=== PATIENT | female | born 1990 | race Caucasian/White ===

== ENCOUNTER 2017-01-25 20:01 | Emergency (ER) | payer BC, OTHER ==
[~2017-01-25] VITALS: Ht 165.1 cm; Wt 72.8 kg
[~2017-01-25 20:01] MED LIST: ASCO500T3 PO; CYAN100020 PO
[2017-01-25 20:04] VITALS: TEMP 36.3; Ht 165.1 cm; Wt 72.8 kg
[2017-01-25] MEDS ORDERED: ONDANSETRON INJ 2 MG/ML 2 ML VIAL IV STA (20:18)
[2017-01-25] MEDS ORDERED: SODIUM CHLORIDE 0.9% 1000ML 1,000 ML IV STA (20:18)
--- NOTE | 2017-01-25 20:28 | EMERGENCY ROOM VISIT NOTE ---
History Report prepared by Ya: Isaiah Sierra Under the Supervision of: Dr. Samantha Pyle M.D. First contact with patient: 20:10 Chief Complaint: VOMITING Stated Complaint: BARTHOLIN'S CYST AND VOMITING History of Present Illness The patient is a 26 year old female who presents to the Emergency Room with complaints of intermittent vomiting starting a couple of hours ago. The patient states that she had one alcoholic drink earlier, and she had some food. Afterwards she started to vomit, and she states that she has vomited 5 times in the last hour and a half. The patient additionally states that she has a Bartholin's cyst for the past week and a half. She states that she has had them in the past, and each time they are lanced. She states that she is currently on her period. Source of History: patient Onset: a couple of hours ago Position: other (global) Quality: other (vomiting) Timing: intermittent Review of Systems See HPI for pertinent positives & negatives. A total of 10 systems reviewed and were otherwise negative. Past Medical & Surgical Medical Problems: (1) No chronic problems (2) Pneumonia Family History Cancer Diabetes mellitus Hypertension Social History Smoking Status: Current Some Day Smoker Drug Use: none Marital Status: single Occupation Status: employed Current/Historical Medications Scheduled Omeprazole (Prilosec), 20 MG PO DAILY Sulfa/Trimethoprim (Bactrim Ds 800MG/160MG), 1 TAB PO BID Scheduled PRN Ibuprofen Tab (Advil), 400-600 MG PO Q6H PRN for Pain or Fever Allergies Coded Allergies: No Known Allergies (Unverified , 03/09/15) Physical Exam Vital Signs Date Time Temp Pulse Resp B/P (MAP) Pulse Ox O2 Delivery O2 Flow Rate FiO2 01/25/17 20:04 36.3 80 16 135/84 100 Room Air Physical Exam Vital signs reviewed. General: Well-appearing female, in no significant distress. HEENT: No scleral icterus, PERRLA, neck supple. Atraumatic. Cardiovascular: Regular rate and rhythm, no extra sounds. Pulmonary: Clear to auscultation bilaterally, normal work of breathing. Abdomen: Soft, nontender, nondistended, positive bowel sounds. Pelvic: Musculoskeletal: Atraumatic, no peripheral edema. Neurologic: Patient awake alert and oriented x 3, full strength in all 4 extremities. Cranial nerves 2 through 12 grossly intact. Skin: Warm, dry, no rash Medical Decision & Procedures Laboratory Results 01/25/17 20:50 Red Blood Count 4.51, Mean Corpuscular Volume 88.7, Mean Corpuscular Hemoglobin 29.9, Mean Corpuscular Hemoglobin Concent 33.8, Mean Platelet Volume 11.5, Neutrophils (%) (Auto) 68.4, Lymphocytes (%) (Auto) 24.0, Monocytes (%) (Auto) 5.4, Eosinophils (%) (Auto) 1.5, Basophils (%) (Auto) 0.1, Neutrophils # (Auto) 5.91, Lymphocytes # (Auto) 2.08, Monocytes # (Auto) 0.47, Eosinophils # (Auto) 0.13, Basophils # (Auto) 0.01 01/25/17 20:50 Test 01/25/17 20:50 01/25/17 21:09 White Blood Count 8.65 K/uL (4.8-10.8) Red Blood Count 4.51 M/uL (4.2-5.4) Hemoglobin 13.5 g/dL (12.0-16.0) Hematocrit 40.0 % (37-47) Mean Corpuscular Volume 88.7 fL (80-100) Mean Corpuscular Hemoglobin 29.9 pg (25-34) Mean Corpuscular Hemoglobin Concent 33.8 g/dl (32-36) Platelet Count 225 K/uL (130-400) Mean Platelet Volume 11.5 fL (7.4-10.4) Neutrophils (%) (Auto) 68.4 % Lymphocytes (%) (Auto) 24.0 % Monocytes (%) (Auto) 5.4 % Eosinophils (%) (Auto) 1.5 % Basophils (%) (Auto) 0.1 % Neutrophils # (Auto) 5.91 K/uL (1.4-6.5) Lymphocytes # (Auto) 2.08 K/uL (1.2-3.4) Monocytes # (Auto) 0.47 K/uL (0.11-0.59) Eosinophils # (Auto) 0.13 K/uL (0-0.5) Basophils # (Auto) 0.01 K/uL (0-0.2) RDW Standard Deviation 39.3 fL (36.4-46.3) RDW Coefficient of Variation 12.2 % (11.5-14.5) Immature Granulocyte % (Auto) 0.6 % Immature Granulocyte # (Auto) 0.05 K/uL (0.00-0.02) Anion Gap 8.0 mmol/L (3-11) Est Creatinine Clear Calc Drug Dose 123.1 ml/min Estimated GFR () 138.0 Estimated GFR (Non- 119.0 BUN/Creatinine Ratio 20.3 (10-20) Calcium Level 9.4 mg/dl (8.5-10.1) Total Bilirubin 0.7 mg/dl (0.2-1) Direct Bilirubin 0.2 mg/dl (0-0.2) Aspartate Amino Transf (AST/SGOT) 25 U/L (15-37) Alanine Aminotransferase (ALT/SGPT) 26 U/L (12-78) Alkaline Phosphatase 54 U/L (45-117) Total Protein 7.8 gm/dl (6.4-8.2) Albumin 4.1 gm/dl (3.4-5.0) Human Chorionic Gonadotropin, Qual NEG (NEG) Urine Color YELLOW Urine Appearance CLEAR (CLEAR) Urine pH 7.5 (4.5-7.5) Urine Specific [place] 1.018 (1.000-1.030) Urine Protein NEG (NEG) Urine Glucose (UA) NEG (NEG) Urine Ketones NEG (NEG) Urine Occult Blood 2+ (NEG) Urine Nitrite NEG (NEG) Urine Bilirubin NEG (NEG) Urine Urobilinogen NEG (NEG) Urine Leukocyte Esterase NEG (NEG) Urine WBC (Auto) 1-5 /hpf (0-5) Urine RBC (Auto) 0-4 /hpf (0-4) Urine Hyaline Casts (Auto) 1-5 /lpf (0-5) Urine Epithelial Cells (Auto) 10-20 /lpf (0-5) Urine Bacteria (Auto) NEG (NEG) Laboratory results per my review. Medications Administered Medications (Trade) Dose Ordered Sig/Zhane Route Start Time Stop Time Status Last Admin Dose Admin Sodium Chloride 1,000 ml @ 999 mls/hr Q1H1M STAT IV 01/25/17 20:18 01/25/17 21:18 DC 01/25/17 20:58 999 MLS/HR Ondansetron HCl (Zofran Inj) 4 mg NOW STAT IV 01/25/17 20:18 01/25/17 20:19 DC 01/25/17 20:58 4 MG Procedure Incision & Drainage Indication: Bartholin's Abscess. Location: Left labia Verbal consent was obtained after the risks and benefits were explained, including but not limited to bleeding, scarring, infection, pain, and bone/joint /nerve damage. At this time, the risks of the procedure are less than the risks of NOT performing the procedure. A time out was taken and the correct patient and site identified. The skin was prepped with betadine and a sterile field set. The wound was anesthetized with 2 ml of 1% lidocaine without epinephrine. The abscess cavity was entered with a number 11 blade and purulent material expressed. Copious irrigation was performed using saline. The wound was explored for foreign bodies and none found. Packing placed and a sterile dressing applied. Detailed wound care instructions and signs and symptoms of worsening infection reviewed with the patient. No complications and the patient tolerated the procedure well. ED Course 2010: Past medical records reviewed. The patient was evaluated in room B6. A complete history and physical examination was performed. 2018: Zofran Inj 4mg IV, Sodium Chloride 1000 ml @ 999 mls/hr IV Medical Decision Differential diagnosis: Etiologies such as gastroenteritis, food borne illness, infections, appendicitis , diverticulitis, inflammatory bowel disease, obstruction, GI bleed, biliary pathology, labial abscess, STI, Bartholin cyst, as well as others were entertained. This patient was evaluated and appeared to be in significant discomfort. IV access was obtained and laboratory work was drawn. The patient was hydrated with normal saline solution given IV Zofran for her nausea and vomiting. Patient's laboratory work is fairly unrevealing. After the patient was feeling improved, pelvic exam was performed. There is a large left Bartholin's abscess present. Please see my procedure note above. The I&D was done without complication. Patient was placed on Bactrim DS 1 tablet twice daily for 7 days. Culture was obtained and is sent. Patient has a follow-up appointment with INFANT AND TODDLER TEACHER on February 03. Wound care instructions were given. The patient will pull the packing in 2 days time. She will return to the ER for worsening of symptoms or any medical concerns. Impression Primary Impression: Bartholin's gland abscess Scribe Attestation The scribe's documentation has been prepared under my direction and personally reviewed by me in its entirety. I confirm that the note above accurately reflects all work, treatment, procedures, and medical decision making performed by me. Departure Information Prescriptions Sulfa/Trimethoprim (Bactrim Ds 800MG/160MG) Tab 1 TAB PO BID for 7 Days, #14 TAB Prov: Dorys Sanchez M.D. 01/25/17 Referrals No Doctor, Assigned (PCP) Patient Instructions My [facility]
[2017-01-25] MEDS ORDERED: OMEP20CA9 PO (20:36)
[2017-01-25] MEDS ORDERED: IBUP-103 PO (20:37)
[2017-01-25 21:02] LABS: BASO % 0.1 %; BASO ABS # 0.01 K/uL (0-0.2); COMPLETE YES; EOS % 1.5 %; IG% 0.6 %; LYMPH ABS # 2.08 K/uL (1.2-3.4); MEAN CELL VOLUME 88.7 fL (80-100); MEAN CORPUSCULAR HEMOGLOBIN 29.9 pg (25-34); MEAN CORPUSCULAR HGB CONC 33.8 g/dl (32-36); MEAN PLATELET VOLUME 11.5 fL (7.4-10.4); MONO % 5.4 %; NEUT % 68.4 %; PLATELET COUNT 225 K/uL (130-400); RED BLOOD COUNT 4.51 M/uL (4.2-5.4); WHITE BLOOD COUNT 8.65 K/uL (4.8-10.8)
[2017-01-25] MEDS ORDERED: XYLOCAINE 1%/SOD BICARB 20 ML VIAL INFIL ONE (21:12)
[2017-01-25 21:21] LABS: MANUAL MICROSCOPIC REQUIRED? NO; REVIEW REQ? NO; URINE APPEARANCE CLEAR (CLEAR); URINE BILIRUBIN NEG (NEG); URINE COLOR YELLOW; URINE NITRITE NEG (NEG); URINE PH 7.5 (4.5-7.5); URINE SPECIFIC GRAVITY 1.018 (1.000-1.030); UROBILINOGEN NEG (NEG); ZZUR CULT IF INDIC CLEAN CATCH NO
[2017-01-25 21:21] LABS: BUN/CREATININE RATIO 20.3 (10-20); CALCIUM 9.4 mg/dl (8.5-10.1); CREATININE 0.68 mg/dl (0.60-1.20); POTASSIUM 3.8 mmol/L (3.5-5.1)
[2017-01-25 21:22] LABS: PREG INTERNAL NEGATIVE QC NEG CLEAR BACKGROUND; PREG INTERNAL POSITIVE QC POS CONTROL LINE
[2017-01-25] MEDS ORDERED: KETOROLAC TROMETHAMINE 30 MG/ML VIAL IV STA (21:48)
[2017-01-25] MEDS ORDERED: SULF800T23 PO (21:49)
[2017-01-25] MEDS ORDERED: FLUC150T PO (21:59)
[2017-01-25] MEDS ORDERED: NORCO 5/325MG HOME PACK PO ONE (22:00)
[2017-01-25 22:02] VITALS: BP 115/72; PULSE 80; O2SAT 98
== END 2017-01-25 22:26 | disposition home or self-care (01) ==
LOC: C.EDB 20:04
DX: N75.1 Abscess of Bartholin's gland (principal); Z87.01 Personal history of pneumonia (recurrent); Z80.9 Family history of malignant neoplasm, unspecified; Z83.3 Family history of diabetes mellitus; Z82.49 Family history of ischemic heart disease and other diseases of the circulatory system; F17.210 Nicotine dependence, cigarettes, uncomplicated; Z79.899 Other long term (current) drug therapy

== ENCOUNTER 2017-01-26 13:37 | Emergency (ER) | payer OTHER ==
[~2017-01-26] VITALS: Ht 165.1 cm; Wt 72.6 kg
[~2017-01-26 13:37] MED LIST changes: -ASCO500T3 PO; -CYAN100020 PO; +FLUC150T PO; +IBUP-103 PO; +OMEP20CA9 PO; +SULF800T23 PO
[2017-01-26 13:49] VITALS: TEMP 36.8; Ht 165.1 cm; Wt 72.6 kg
--- NOTE | 2017-01-26 14:33 | EMERGENCY ROOM VISIT NOTE ---
ED Visit Note First contact with patient: 13:53 CHIEF COMPLAINT: Bleeding from incision site from Bartholin's abscess HISTORY OF PRESENT ILLNESS: This 26-year-old female patient presents to the emergency department ambulatory, with a female friend, complaining of significant bleeding coming from the incision site of the incision and drainage which was performed yesterday on her Bartholin's cyst. Yesterday, the patient had presented with nausea and pain in the left labia. She did have a history of Bartholin's cysts which did need to be drained. The abscess was drained yesterday evening and packed. The patient states when she got home, she began experiencing significant bleeding, and was pulling clots out of the area. The patient states she does currently have her period, but states the bleeding seems to have come from the abscess, not the vagina. The patient has had to wear an adult diaper due to the substantial amount of bleeding she is experienced. Patient states the packing did come out. She has been taking Bactrim as prescribed. The patient denies any fever, chills, nausea, vomiting, abdominal pain, puslike drainage, worsening redness or pain of the labia, or other associated symptoms. She states she soaked through several pads and adult diapers today. REVIEW OF SYSTEMS: A 10 system review of systems was performed with positives and pertinent negatives listed in the history of present illness. All other systems were reviewed and are negative. 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 She lives locally with her roommate. The patient denies drug, alcohol, tobacco use. PHYSICAL EXAM: VITALS: Vitals are noted on the nurse's note and reviewed by myself. Vital signs stable. GENERAL: This is a 26-year-old female, in no acute distress, nondiaphoretic, well-developed well-nourished. GENITALIA: The perineum is without erythema, swelling, excoriations, or open wounds. There is a small incision on the left labia. There is a small blood clot in place in the incision. There is no active bleeding at this time. The labia was cleaned with sterile gauze and saline. All blood was removed for further evaluation. There is no redness, warmth, swelling, purulent drainage, or other findings noted at the incision site. EMERGENCY DEPARTMENT COURSE: The patient was seen and evaluated as above. Attempts were made to repack the wound, but the patient was unable to tolerate the procedure. The patient did decline lidocaine and repacking of the wound. The active bleeding from attempts to place packing was stopped with direct pressure and the wound was covered with gauze. Discharge instructions were discussed, and the patient was discharged home in good condition. DIFFERENTIAL DIAGNOSIS: Abscess, significant blood loss, infection, trauma, and others. DIAGNOSIS: Bleeding from Bartholin's abscess DISCHARGE INSTRUCTIONS & TREATMENT: Please use sitz bath as recommended to house carpenter helper in the drainage of the abscess. Keep a gauze pad between the labia in order to hold pressure on the wound to stop bleeding. If you need to remove or change the gauze, make sure you when it first in order to prevent from pulling and removing the clot. Continue taking Bactrim as previously prescribed. Please follow up in the emergency department for worsening bleeding, pus like drainage, redness, pain, fever, chills, nausea, vomiting, or other concerning symptoms. Please follow up on February 03 with gynecology at your scheduled appointment to discuss possible surgical treatment for the cyst. Problem List Medical Problems: (1) No chronic problems Status: Chronic (2) Pneumonia Status: Resolved Current/Historical Medications Scheduled Fluconazole (Diflucan), 150 MG PO q 3 days Omeprazole (Prilosec), 20 MG PO DAILY Sulfa/Trimethoprim (Bactrim Ds 800MG/160MG), 1 TAB PO BID Scheduled PRN Ibuprofen Tab (Advil), 400-600 MG PO Q6H PRN for Pain or Fever Allergies Coded Allergies: No Known Allergies (Unverified , 03/09/15) Vital Signs Date Time Temp Pulse Resp B/P (MAP) Pulse Ox O2 Delivery O2 Flow Rate FiO2 01/26/17 14:52 51 16 102/65 100 01/26/17 13:49 36.8 82 18 140/84 98 Room Air Departure Information Impression Primary Impression: Abscess of Bartholin's gland Dispostion Home / Self-Care Condition GOOD Referrals Amna Haro CRNP (PCP) Patient Instructions ED Bartholins Cyst [place], [facility] Additional Instructions Please use sitz bath as recommended to house carpenter helper in the drainage of the abscess. Keep a gauze pad between the labia in order to hold pressure on the wound to stop bleeding. If you need to remove or change the gauze, make sure you when it first in order to prevent from pulling and removing the clot. Continue taking Bactrim as previously prescribed. Please follow up in the emergency department for worsening bleeding, pus like drainage, redness, pain, fever, chills, nausea, vomiting, or other concerning symptoms. Please follow up on February 03 with gynecology at your scheduled appointment to discuss possible surgical treatment for the cyst.
[2017-01-26 14:52] VITALS: BP 102/65; PULSE 51; O2SAT 100
== END 2017-01-26 14:54 | disposition home or self-care (01) ==
LOC: C.EDB 13:38 → C.EDC 14:54
DX: N75.1 Abscess of Bartholin's gland (principal); K21.9 Gastro-esophageal reflux disease without esophagitis; Z79.899 Other long term (current) drug therapy; Z87.448 Personal history of other diseases of urinary system

== ENCOUNTER 2017-02-02 10:52 | Emergency (ER) | payer OTHER ==
[~2017-02-02] VITALS: Ht 165.1 cm; Wt 71.4 kg
[~2017-02-02 10:52] MED LIST changes: -FLUC150T PO
[2017-02-02 11:10] VITALS: TEMP 37.9; Ht 165.1 cm; Wt 71.4 kg
[2017-02-02] MEDS ORDERED: SULF800T23 PO (11:34)
[2017-02-02] MEDS ORDERED: DFL150 PO (11:34)
[2017-02-02] MEDS ORDERED: ACETAMINOPHEN 325 MG TAB PO STA (11:50)
[2017-02-02] MEDS ORDERED: SODIUM CHLORIDE 0.9% 1000ML 1,000 ML IV STA (11:50)
--- NOTE | 2017-02-02 12:05 | EMERGENCY ROOM VISIT NOTE ---
History Report prepared by Ya: Tracie Smallwood Under the Supervision of: Dr. Samantha Pyle M.D. First contact with patient: 11:20 Chief Complaint: FEVER Stated Complaint: FEVER,VOMITING,HERE LAST WK FOR BARTHOLYN CYST History of Present Illness The patient is a 26 year old female who presents to the Emergency Room with complaints of persistent fever starting yesterday. The patient had a Bartholin cyst drained last week in the ED. She was started on Bactrim. She came back the next day after the packing fell out a couple after she returned home. She had a lot of bleeding at that time. She has not had much bleeding since. She does not have any related pain anymore. Two days ago, she started feeling shaky with chills. She has been nauseous and vomiting. She has been unable to eat much for the past 2 days. Last night, she was shaking uncontrollably with a fever and lower abdominal pain. She felt cold and was flushed. Today at work, she was unable to get out of her chair because her legs felt weak. This morning she noticed a rash developing on her arms. Her ears feel hot. She denies any ear pain. This morning was her last dose of Motrin, but she was unable to get it down. Source of History: patient Onset: yesterday Position: other (global) Quality: other (fever) Timing: other (persistent) Associated Symptoms: + chills, + nausea, + vomiting, + abdominal pain, + weakness, + rash Review of Systems See HPI for pertinent positives & negatives. A total of 10 systems reviewed and were otherwise negative. Past Medical & Surgical Medical Problems: (1) No chronic problems (2) Pneumonia Family History Cancer Diabetes mellitus Hypertension Social History Smoking Status: Current Some Day Smoker Alcohol Use: occasionally Drug Use: none Marital Status: in relationship Occupation Status: employed Current/Historical Medications Scheduled Fluconazole (Fluconazole), 150 MG PO UD Omeprazole (Prilosec), 20 MG PO DAILY Sulfa/Trimethoprim (Bactrim Ds 800MG/160MG), 1 TAB PO BID Scheduled PRN Ibuprofen Tab (Advil), 400-600 MG PO Q6H PRN for Pain or Fever Allergies Coded Allergies: Sulfamethoxazole w/Trimethoprim (Verified Allergy, Unknown, Low grade fever, hives, shakiness, nausea, 9/10/17) Physical Exam Vital Signs Date Time Temp Pulse Resp B/P (MAP) Pulse Ox O2 Delivery O2 Flow Rate FiO2 02/02/17 15:17 74 20 114/88 98 Room Air 02/02/17 13:45 66 16 128/57 02/02/17 11:10 37.9 95 18 120/82 98 Room Air Physical Exam Vital signs reviewed. General: Well-appearing female, in no significant distress. HEENT: No scleral icterus, PERRLA, neck supple. Atraumatic. Cardiovascular: Regular rate and rhythm, no extra sounds. Pulmonary: Clear to auscultation bilaterally, normal work of breathing. Abdomen: Soft, nontender, nondistended, positive bowel sounds. Pelvic: Normal genitals, no evidence of abscess, previous I&D is well healed. Musculoskeletal: Atraumatic, no peripheral edema. Neurologic: Patient awake alert and oriented x 3 Skin: Warm, dry. Lacy rash diffusely noted primarily to the back and upper extremities, no vesicular lesions or open lesions identified. Medical Decision & Procedures Laboratory Results 02/02/17 12:40 Red Blood Count 4.84, Mean Corpuscular Volume 88.0, Mean Corpuscular Hemoglobin 29.5, Mean Corpuscular Hemoglobin Concent 33.6, Mean Platelet Volume 11.9, Neutrophils (%) (Auto) 68.5, Lymphocytes (%) (Auto) 19.6, Monocytes (%) (Auto) 9.2, Eosinophils (%) (Auto) 1.9, Basophils (%) (Auto) 0.3, Neutrophils # (Auto) 2.52, Lymphocytes # (Auto) 0.72, Monocytes # (Auto) 0.34, Eosinophils # (Auto) 0.07, Basophils # (Auto) 0.01 02/02/17 12:40 Test 02/02/17 12:40 02/02/17 12:50 02/02/17 12:52 White Blood Count 3.68 K/uL (4.8-10.8) Red Blood Count 4.84 M/uL (4.2-5.4) Hemoglobin 14.3 g/dL (12.0-16.0) Hematocrit 42.6 % (37-47) Mean Corpuscular Volume 88.0 fL (80-100) Mean Corpuscular Hemoglobin 29.5 pg (25-34) Mean Corpuscular Hemoglobin Concent 33.6 g/dl (32-36) Platelet Count 122 K/uL (130-400) Mean Platelet Volume 11.9 fL (7.4-10.4) Neutrophils (%) (Auto) 68.5 % Lymphocytes (%) (Auto) 19.6 % Monocytes (%) (Auto) 9.2 % Eosinophils (%) (Auto) 1.9 % Basophils (%) (Auto) 0.3 % Neutrophils # (Auto) 2.52 K/uL (1.4-6.5) Lymphocytes # (Auto) 0.72 K/uL (1.2-3.4) Monocytes # (Auto) 0.34 K/uL (0.11-0.59) Eosinophils # (Auto) 0.07 K/uL (0-0.5) Basophils # (Auto) 0.01 K/uL (0-0.2) RDW Standard Deviation 39.0 fL (36.4-46.3) RDW Coefficient of Variation 12.1 % (11.5-14.5) Immature Granulocyte % (Auto) 0.5 % Immature Granulocyte # (Auto) 0.02 K/uL (0.00-0.02) Anion Gap 7.0 mmol/L (3-11) Est Creatinine Clear Calc Drug Dose 83.0 ml/min Estimated GFR () 88.8 Estimated GFR (Non- 76.6 BUN/Creatinine Ratio 9.9 (10-20) Calcium Level 9.1 mg/dl (8.5-10.1) Total Bilirubin 1.2 mg/dl (0.2-1) Direct Bilirubin 0.2 mg/dl (0-0.2) Aspartate Amino Transf (AST/SGOT) 17 U/L (15-37) Alanine Aminotransferase (ALT/SGPT) 19 U/L (12-78) Alkaline Phosphatase 50 U/L (45-117) Total Protein 8.1 gm/dl (6.4-8.2) Albumin 4.3 gm/dl (3.4-5.0) Urine Color YELLOW Urine Appearance CLEAR (CLEAR) Urine pH 6.0 (4.5-7.5) Urine Specific [place] 1.013 (1.000-1.030) Urine Protein NEG (NEG) Urine Glucose (UA) NEG (NEG) Urine Ketones NEG (NEG) Urine Occult Blood NEG (NEG) Urine Nitrite NEG (NEG) Urine Bilirubin NEG (NEG) Urine Urobilinogen NEG (NEG) Urine Leukocyte Esterase NEG (NEG) Bedside Lactic Acid Venous 1.09 mmol/L (0.90-1.70) Laboratory results per my review. Medications Administered Medications (Trade) Dose Ordered Sig/Zhane Route Start Time Stop Time Status Last Admin Dose Admin Sodium Chloride 1,000 ml @ 999 mls/hr Q1H1M STAT IV 02/02/17 11:50 02/02/17 12:50 DC 02/02/17 13:23 999 MLS/HR Acetaminophen (Tylenol Tab) 650 mg NOW STAT PO 02/02/17 11:50 02/02/17 11:52 DC 02/02/17 13:23 650 MG Ondansetron HCl (Zofran Inj) 4 mg NOW STAT IV 02/02/17 13:32 02/02/17 13:34 DC 02/02/17 13:46 4 MG ED Course 1148: Past medical records reviewed. The patient was evaluated in room A9B. A complete history and physical examination was performed. 1150: Acetaminophen 650 mg PO, NSS 1000 ml @ 999 mls/hr IV. 1332: Zofran Inj 4 mg IV. 1523: Upon reevaluation, the patient was doing well. I discussed findings with her. She verbalized agreement of the treatment plan. She was discharged home. Medical Decision Differential diagnosis: Influenza, other viral illness, pneumonia, urinary tract infection, metabolic abnormality, medication effect, cellulitis, meningitis, intra-abdominal source. This patient was evaluated and appeared to be in no significant distress. IV access was obtained and laboratory work was drawn. Patient was placed on the pipe and boiler covers supervisor and found to be in a normal sinus rhythm. She was given Tylenol for her pain and low-grade fever. Blood cultures were obtained. White blood cell count is normal. Patient's rash and low-grade fevers are likely secondary to the Bactrim she has been taking. She was feeling improved after IV hydration. Evaluation of the perineum reveals a well-healing labia status post I&D. She has an appointment 24 hours with GATHERING MACHINE FEEDER regarding the recurrent Bartholin's cyst. She was advised to stop the Bactrim and list this as an allergy in the future. Patient will return to the ER for worsening of symptoms or any medical concerns. Medication Reconcilliation Current Medication List: was personally reviewed by me Blood Pressure Screening Patient's blood pressure: Normal blood pressure Blood pressure disposition: Did not require urgent referral Impression Primary Impression: Drug eruption Scribe Attestation The scribe's documentation has been prepared under my direction and personally reviewed by me in its entirety. I confirm that the note above accurately reflects all work, treatment, procedures, and medical decision making performed by me. Departure Information Dispostion Home / Self-Care Referrals Amna Haro CRNP (PCP) Forms HOME CARE DOCUMENTATION FORM, IMPORTANT VISIT INFORMATION Patient Instructions My [facility] Additional Instructions Diagnosis: Bactrim rash Please avoid sulfa drugs or Bactrim in the future. Tylenol 650 mg every 6 hours as needed for pain or fever. Drink plenty of clear fluids. Follow-up with GATHERING MACHINE FEEDER as scheduled tomorrow for reevaluation. Return to the emergency department for worsening of symptoms or any medical concerns.
[2017-02-02 13:16] LABS: BASO % 0.3 %; BASO ABS # 0.01 K/uL (0-0.2); COMPLETE YES; EOS % 1.9 %; HEMATOCRIT 42.6 % (37-47); IG% 0.5 %; LYMPH % 19.6 %; LYMPH ABS # 0.72 K/uL (1.2-3.4); MEAN CORPUSCULAR HEMOGLOBIN 29.5 pg (25-34); MEAN CORPUSCULAR HGB CONC 33.6 g/dl (32-36); MEAN PLATELET VOLUME 11.9 fL (7.4-10.4); MONO % 9.2 %; NEUT % 68.5 %; PLATELET COUNT 122 K/uL (130-400); RED BLOOD COUNT 4.84 M/uL (4.2-5.4); WHITE BLOOD COUNT 3.68 K/uL (4.8-10.8)
[2017-02-02] MEDS ORDERED: ONDANSETRON INJ 2 MG/ML 2 ML VIAL IV STA (13:32)
[2017-02-02 13:34] LABS: BUN/CREATININE RATIO 9.9 (10-20); CALCIUM 9.1 mg/dl (8.5-10.1); POTASSIUM 3.5 mmol/L (3.5-5.1)
[2017-02-02 13:37] LABS: URINE APPEARANCE CLEAR (CLEAR); URINE BILIRUBIN NEG (NEG); URINE COLOR YELLOW; URINE NITRITE NEG (NEG); URINE SPECIFIC GRAVITY 1.013 (1.000-1.030); UROBILINOGEN NEG (NEG); ZZUR CULT IF INDIC CLEAN CATCH NO
[2017-02-02 13:42] LABS: MANUAL MICROSCOPIC REQUIRED? NO; REVIEW REQ? NO
[2017-02-02 15:17] VITALS: BP 114/88; PULSE 74; O2SAT 98
== END 2017-02-02 15:45 | disposition home or self-care (01) ==
LOC: C.EDB 10:54 → C.EDA 15:45
DX: L27.0 Generalized skin eruption due to drugs and medicaments taken internally (principal); R50.9 Fever, unspecified; R11.2 Nausea with vomiting, unspecified; Z79.899 Other long term (current) drug therapy; Z87.01 Personal history of pneumonia (recurrent); Z87.42 Personal history of other diseases of the female genital tract; Z82.49 Family history of ischemic heart disease and other diseases of the circulatory system; Z83.3 Family history of diabetes mellitus; F17.200 Nicotine dependence, unspecified, uncomplicated

== ENCOUNTER 2019-12-22 23:04 | Inpatient (IN) ==
[2019-12-23] MEDS: LACTATED RINGER'S 1,000 ML IV PRN ×3 (02:45→13:37)
[2019-12-23] MEDS: BUTORPHANOL TARTRATE 1 MG/ML VIAL IV PRN ×2 (02:52→04:42)
[2019-12-23] MEDS ORDERED: OXYTOCIN 30 UNITS/500 ML BAG IV PRN ×3 (03:05→18:03)
[2019-12-23 03:48] LABS: Hematocrit (blood only) 34.1 % (37-47); Mean Corpuscular Hemoglobin 31.4 pg (25-34); Mean Corpuscular Hgb Conc 35.2 g/dL (32-36); Mean Corpuscular Volume 89.3 fL (80-100); Mean Platelet Volume 12.7 fL (7.4-10.4); Platelet Count 121 K/uL (130-400); RDW Coefficient of Variation 12.9 % (11.5-14.5); RDW Standard Deviation 41.7 fL (36.4-46.3); Red Blood Count 3.82 M/uL (4.2-5.4); White Blood Count 13.89 K/uL (4.8-10.8)
[2019-12-23 03:49] LABS: Platelet Estimate Decreased (Normal)
--- NOTE | 2019-12-23 05:01 | History & Physical Report ---
Date of Service December 23, 2019 Assessment & Plan Admission and Anticipated Discharge Date Admission Date: December 23, 2019 IUP at 41 weeks with cervical change although a contraction pattern has not been able to be documented. Will start pitocin at 0600 with epidural analgesia as patient rates pain at 8/10 prior to the stadol. see orders for futher directions. History of Present Illness Primary Care Provider: MYRIAM Molina Patient is a 29 yo white female who presents at 41 weeks with chief complaint of regular contractions that are stronger & more consistent then she has felt in the past. + pink discharge but no SPROM. GBS negative. She had no cervical change from her office exam after 4 hours but she is scheduled for IOL today. She received 2 doses of Stadol and now she has shown cervical change. The pain she is having now is constant and described as a burning sensation in the right side of her back radiating to the right groin. This pain does get more intense intermittently. Allergies Allergy/AdvReac Type Severity Reaction Status Date / Time Sulfa (Sulfonamide Allergy Intermediate RASH/NAUSEA Verified 12/22/19 13:05 Antibiotics) "BACTRIM RASH" sulfamethoxazole Allergy Intermediate Low grade Verified 12/22/19 13:05 fever, hives, shakiness, nausea trimethoprim Allergy Intermediate Low grade Verified 12/22/19 13:05 fever, hives, shakiness, nausea Bactrim Allergy Unknown Low grade Verified 11/06/18 15:14 fever, hives, shakiness, nausea Home Medications Home Medications Medication Instructions Recorded Confirmed Type prenat.vits,danitza,brj-gqlu-nqkhi 1 tab PO DAILY 05/05/19 12/22/19 History acetone (urine) test #50 ea 10/01/19 12/22/19 Rx blood sugar diagnostic #150 ea 10/01/19 12/22/19 Rx blood-glucose meter #1 ea 10/01/19 12/22/19 Rx lancets #102 ea 10/01/19 12/22/19 Rx escitalopram oxalate 10 mg tablet 10 mg PO QAM #30 tab 11/06/19 12/22/19 Rx Patient History Medical History Abnormal biochemical finding on screening of mother Anxiety Arthritis Bartholin cyst Cyst of left Bartholin's gland Encounter for anatomic survey Encounter for pre-operative examination Evaluate anatomy not seen on prior sonogram GERD (gastroesophageal reflux disease) Gestational diabetes Hx of varicella Surgical History History of rhinoplasty History of tooth extraction [place] teeth removed Family History Father Family history of diabetes mellitus Diabetes Multiple sclerosis Hepatitis B Drinking problem Mother Family hx of colon cancer Hepatitis B Sister Hepatitis B Social History Smoking Status: Never smoker Second Hand Exposure: No; Hx Alcohol Use: No Hx Substance Use: Yes Last Used Substance Other:: 6 MONTHS AGO Preferred Language: Ethiopian Communication Ability: Effective Construction Producer Required: No Beliefs That Will Affect Care: None marital status: marital status details: Felix Almendarez (30) [phone] Current Living Situation: Spouse Current Living Situation Comment: lives with spouse, 1 dog 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 [employer] Feels Safe at Home: Yes Safety Concerns: Feels Safe At This Time Review of Systems All systems reviewed & are unremarkable except as noted in HPI & below Physical Exam Constitutional: WD/WN, vitals as above Respiratory: normal respiratory effort, lungs clear to auscultation Cardiovascular: RRR, no murmur, no edema Gastrointestinal (Abdomen): normal bowel sounds, soft, nontender, no hepatosplenomegaly Psychiatric: A+Ox3, euthymic affect Genitourinary: OB Exam Abdomen: + vertex Manual OB Exam: + cervical dilation 3 cm, + cervical effacement 90% and + station -1 OB Exam Monitor Tracing: + external FHT monitor used, + external uterine monitor used, + category I and + normal FHT variability Results & Data ([facility]) Vital Signs (Past 12 Hours) Vital Signs Temp Pulse Resp BP 12/23/19 04:12 68 116/55 L 12/23/19 03:00 99.3 F 18 12/22/19 23:27 98.1 F 60 18 118/68 12/22/19 23:21 99.5 F 18 Coding Level of Care Code None
[2019-12-23] MEDS ORDERED: BUPIVACAINE 0.25% 30 ML VIAL ONE (05:57)
[2019-12-23] MEDS ORDERED: fentaNYL citrate 100 MCG/2 ML VIAL ONE (05:57)
[2019-12-23] MEDS ORDERED: ePHEDrine sulfate 50 MG/ML AMP ONE (05:57)
[2019-12-23] MEDS ORDERED: fentaNYL 2MCG/ML ROPIV 1.25MG/ML 100 ML BAG EPI ONE (05:57)
[2019-12-23] MEDS ORDERED: ONDANSETRON INJ 2 MG/ML 2 ML VIAL IV PRN (06:23)
[2019-12-23] MEDS ORDERED: NALOXONE HCL 1 MG in SODIUM CHLORIDE 0.9% 1000ML 1,000 ML IV PRN (06:23)
[2019-12-23] MEDS ORDERED: ePHEDrine sulfate 50 MG/ML AMP IV PRN (06:23)
[2019-12-23] MEDS ORDERED: DiphenhydrAMINE HCL 50 MG/ML VIAL IV PRN (06:23)
[2019-12-23] MEDS ORDERED: NALOXONE HCL 0.4 MG/1 ML VIAL/CARP IV PRN (06:23)
--- NOTE | 2019-12-23 06:28 | Anesthesiology Consultation ---
Date of Service December 23, 2019 Covid 19 negative on 11/30/19. Assessment & Plan Chart Review Chart Review: Patient NOT seen in Pre Admission Testing and Acceptable Risk for Labor Epidural Consults Requested none ASA ASA2 Proposed Anesthesia Anesthesia Type: Labor Epidural and CSE Risk / Benefits Reviewed With: PT / POA / Parent / Guardian, Accepts Plan and Informed Consent Obtained History Height/Weight Height: 5 ft 5 in Weight: 98.883 kg Allergies Allergy/AdvReac Type Severity Reaction Status Date / Time Sulfa (Sulfonamide Allergy Intermediate RASH/NAUSEA Verified 12/22/19 13:05 Antibiotics) "BACTRIM RASH" sulfamethoxazole Allergy Intermediate Low grade Verified 12/22/19 13:05 fever, hives, shakiness, nausea trimethoprim Allergy Intermediate Low grade Verified 12/22/19 13:05 fever, hives, shakiness, nausea Bactrim Allergy Unknown Low grade Verified 11/06/18 15:14 fever, hives, shakiness, nausea Medications Home Medications Medication Instructions Recorded Confirmed Last Taken prenat.vits,danitza,oge-xrcv-hphim 1 tab PO DAILY 05/05/19 12/22/19 12/22/19 acetone (urine) test #50 ea 10/01/19 12/22/19 Unknown blood sugar diagnostic #150 ea 10/01/19 12/22/19 Unknown blood-glucose meter #1 ea 10/01/19 12/22/19 Unknown lancets #102 ea 10/01/19 12/22/19 Unknown escitalopram oxalate 10 mg tablet 10 mg PO QAM #30 tab 11/06/19 12/22/19 12/22/19 Active Medications Generic Name Dose Route Start Last Admin Trade Name Freq PRN Reason Stop Dose Admin Butorphanol Tartrate 1 mg 12/23/19 03:20 12/23/19 04:42 Stadol IV 01/22/20 03:19 1 mg Q2HWA PRN Administration Pain Lactated Ringer's 1,000 mls @ 125 mls/hr 12/23/19 03:05 12/23/19 06:07 Lr IV 12/25/19 03:04 125 mls/hr .Q8H PRN Administration L&D Protocol Protocol NPO Date Last Intake of Fluids: 12/23/19 Time Last Intake of Fluids: 06:00 Date Last Intake of Solids: 12/22/19 Time Last Intake of Solids: 19:00 Past Medical History Medical History Abnormal biochemical finding on screening of mother Anxiety Arthritis Bartholin cyst Cyst of left Bartholin's gland Encounter for anatomic survey Encounter for pre-operative examination Evaluate anatomy not seen on prior sonogram GERD (gastroesophageal reflux disease) Gestational diabetes Hx of varicella Exercise / Class Metabolic Activity II 4-5 Yardwork/Stairs/Walk up hill Past Family History Family History Father Family history of diabetes mellitus Diabetes Multiple sclerosis Hepatitis B Drinking problem Mother Family hx of colon cancer Hepatitis B Sister Hepatitis B Past Surgical History Surgical History History of rhinoplasty History of tooth extraction [place] teeth removed Past Anesthesia History No Hx of Anesthesia Complications and No Family Hx of Anesthesia Complications History of PONV No Hx of PONV and No Hx of Motion Sickness Social History Smoking Status: Never smoker tobacco type: cigarettes Hx Alcohol Use: No Alcohol type: beer and wine alcohol intake frequency: a few times a month Hx Substance Use: Yes substance use type: marijuana Last Used Substance Other:: 6 MONTHS AGO Review of Systems no chest pain or sob Physical Exam Vital Signs Last Vital Signs Temp 37.4 C 12/23/19 03:00 Pulse 75 12/23/19 06:27 Resp 18 12/23/19 03:00 BP 116/55 L 12/23/19 04:12 Pulse Ox 100 12/23/19 06:27 ENMT Mouth: no TMJ abnormality Thyromental Distance: > or= 3.5 Finger Breadths Mallampati Class: II Neck normal visual inspection Respiratory normal respiratory effort Auscultation: lungs clear to auscultation bilaterally Cardiovascular Rate/Rhythm: regular rate and regular rhythm Musculoskeletal Spine: normal cervical ROM Neurologic moves all extremities Psychiatric Orientation: alert and oriented x 3 Testing Laboratory Results 12/23/19 02:30
[2019-12-23] MEDS: fentaNYL 2MCG/ML ROPIV 1.25MG/ML 100 ML BAG EPI PRN ×2 (06:47→13:33)
--- NOTE | 2019-12-23 08:57 | Labor Progress Brief Note ---
Date of Service December 23, 2019 Subjective comfortable with epidural Assessment & Plan (1) Diet controlled gestational diabetes mellitus (GDM), antepartum: (2) with 41 completed weeks gestation: Admission and Anticipated Discharge Date Admission Date: December 23, 2019 Will need to check blood sugar q 3 yrs. arom and iupc placed to adequate run pitocin. fetus is reassuring category one. Physical Exam Constitutional: WD/WN, vitals as above Psychiatric: A+Ox3, euthymic affect Genitourinary: /-2 arom--meconium toco--not picking up efm--130s with mod variability, small accels , no decels Results & Data ([facility]) Vital Signs (Past 12 Hours) Vital Signs Temp Pulse Resp BP Pulse Ox 12/23/19 08:52 57 L 100 12/23/19 08:47 57 L 100 12/23/19 08:42 61 97 12/23/19 08:37 61 98 12/23/19 08:32 67 99 12/23/19 08:31 68 110/81 12/23/19 08:27 69 96 12/23/19 08:22 74 95 12/23/19 08:17 71 95 12/23/19 08:16 67 105/55 L 12/23/19 08:12 72 96 12/23/19 08:07 73 96 12/23/19 08:02 64 102/56 L 97 12/23/19 08:00 16 12/23/19 07:57 68 96 12/23/19 07:52 66 97 12/23/19 07:49 64 107/56 L 12/23/19 07:47 74 16 99 12/23/19 07:42 68 97 12/23/19 07:37 65 98 12/23/19 07:33 62 104/59 L 12/23/19 07:32 62 99 12/23/19 07:30 16 12/23/19 07:27 62 100 12/23/19 07:22 66 99 12/23/19 07:18 66 114/58 L 12/23/19 07:17 64 16 100 12/23/19 07:12 64 18 100 12/23/19 07:07 64 18 99 12/23/19 07:03 37.3 C 65 18 110/56 L 100 12/23/19 07:02 64 100 12/23/19 07:00 63 18 119/53 L 12/23/19 06:58 63 110/57 L 12/23/19 06:57 68 100 12/23/19 06:56 69 118/58 L 12/23/19 06:54 66 114/68 12/23/19 06:52 68 114/61 100 12/23/19 06:50 63 117/63 12/23/19 06:48 61 111/60 12/23/19 06:47 63 100 12/23/19 06:46 62 119/66 12/23/19 06:44 60 115/57 L 12/23/19 06:42 60 127/60 100 12/23/19 06:37 72 99 12/23/19 06:35 88 89 L 12/23/19 06:32 67 100 12/23/19 06:27 75 100 12/23/19 04:12 68 116/55 L 12/23/19 03:00 37.4 C 18 12/22/19 23:27 36.7 C 60 18 118/68 12/22/19 23:21 37.5 C 18 Coding Level of Care Code None Diagnoses Diet controlled gestational diabetes mellitus (GDM), antepartum O24.410 with 41 completed weeks gestation Z3A.41
[2019-12-23] MEDS ORDERED: CALCIUM CARBONATE 500 MG CHEWABLE TAB PO PRN (12:15)
--- NOTE | 2019-12-23 14:35 | Labor Progress Brief Note ---
Date of Service December 23, 2019 Subjective pressure. Was in another delivery and notified that the patient was c/c/ +2 and felt pressure to push. Assessment & Plan (1) Diet controlled gestational diabetes mellitus (GDM), antepartum: (2) with 41 completed weeks gestation: Admission and Anticipated Discharge Date Admission Date: December 23, 2019 Will begin stage 2. Fetus is category one. Still a very unusual contraction pattern, but has gotten the job done. Anticipate . Physical Exam Constitutional: WD/WN, vitals as above Psychiatric: A+Ox3, euthymic affect Genitourinary: cx--c/c/+2, caput at +3, lots of molding toco--q1-2min, pit at 17 efm--140s with mod variability, small accels , no decels Results & Data ([facility]) Vital Signs (Past 12 Hours) Vital Signs Temp Pulse Resp BP Pulse Ox 12/23/19 14:28 70 88 L 12/23/19 14:23 63 86 L 12/23/19 14:22 64 100 12/23/19 14:17 67 124/59 L 88 L 12/23/19 14:12 82 99 12/23/19 14:07 66 100 12/23/19 14:02 66 100 12/23/19 14:01 68 127/60 12/23/19 13:57 65 100 12/23/19 13:52 68 100 12/23/19 13:47 79 139/82 100 12/23/19 13:42 65 100 12/23/19 13:37 65 100 12/23/19 13:32 63 122/59 L 100 12/23/19 13:27 67 100 12/23/19 13:22 66 100 12/23/19 13:17 67 120/66 100 12/23/19 13:12 69 100 12/23/19 13:07 69 100 12/23/19 13:02 68 119/59 L 100 12/23/19 12:57 67 100 12/23/19 12:52 75 100 12/23/19 12:47 60 100 12/23/19 12:46 64 142/88 H 12/23/19 12:42 59 L 100 12/23/19 12:37 62 99 12/23/19 12:32 60 100 12/23/19 12:31 59 L 138/80 12/23/19 12:27 59 L 100 12/23/19 12:22 64 100 12/23/19 12:17 56 L 133/81 100 12/23/19 12:12 56 L 97 12/23/19 12:07 73 99 12/23/19 12:02 69 120/59 L 99 12/23/19 11:57 69 97 12/23/19 11:52 70 98 12/23/19 11:47 69 100/57 L 97 12/23/19 11:42 67 98 12/23/19 11:37 63 100 12/23/19 11:32 66 105/59 L 100 12/23/19 11:27 67 100 12/23/19 11:22 67 100 12/23/19 11:17 63 108/56 L 100 12/23/19 11:12 67 100 12/23/19 11:07 66 100 12/23/19 11:02 66 100 12/23/19 11:01 61 109/56 L 12/23/19 10:57 73 100 12/23/19 10:52 64 100 12/23/19 10:47 67 100 12/23/19 10:46 69 116/66 12/23/19 10:42 70 100 12/23/19 10:37 64 98 12/23/19 10:32 71 116/58 L 99 12/23/19 10:27 69 100 12/23/19 10:22 66 97 12/23/19 10:18 68 110/59 L 12/23/19 10:17 64 99 12/23/19 10:12 62 99 12/23/19 10:07 63 100 12/23/19 10:02 60 104/57 L 100 12/23/19 09:57 61 100 12/23/19 09:52 66 100 12/23/19 09:47 62 100 12/23/19 09:46 60 116/76 12/23/19 09:42 63 100 12/23/19 09:37 76 100 12/23/19 09:32 64 100 12/23/19 09:31 65 122/84 12/23/19 09:27 61 100 12/23/19 09:22 57 L 100 12/23/19 09:17 55 L 100 12/23/19 09:16 56 L 128/72 07/30/20 09:12 55 L 100 12/23/19 09:07 53 L 99 12/23/19 09:02 58 L 99 12/23/19 09:01 55 L 129/66 12/23/19 08:57 58 L 100 12/23/19 08:52 57 L 100 12/23/19 08:47 57 L 100 12/23/19 08:42 61 97 12/23/19 08:37 61 98 12/23/19 08:32 67 99 12/23/19 08:31 68 110/81 12/23/19 08:27 69 96 12/23/19 08:22 74 95 12/23/19 08:17 71 95 12/23/19 08:16 67 105/55 L 12/23/19 08:12 72 96 12/23/19 08:07 73 96 12/23/19 08:02 64 102/56 L 97 12/23/19 08:00 16 12/23/19 07:57 68 96 12/23/19 07:52 66 97 12/23/19 07:49 64 107/56 L 12/23/19 07:47 74 16 99 12/23/19 07:42 68 97 12/23/19 07:37 65 98 12/23/19 07:33 62 104/59 L 12/23/19 07:32 62 99 12/23/19 07:30 16 12/23/19 07:27 62 100 12/23/19 07:22 66 99 12/23/19 07:18 66 114/58 L 12/23/19 07:17 64 16 100 12/23/19 07:12 64 18 100 12/23/19 07:07 64 18 99 12/23/19 07:03 37.3 C 65 18 110/56 L 100 12/23/19 07:02 64 100 12/23/19 07:00 63 18 119/53 L 12/23/19 06:58 63 110/57 L 12/23/19 06:57 68 100 12/23/19 06:56 69 118/58 L 12/23/19 06:54 66 114/68 12/23/19 06:52 68 114/61 100 12/23/19 06:50 63 117/63 12/23/19 06:48 61 111/60 12/23/19 06:47 63 100 12/23/19 06:46 62 119/66 12/23/19 06:44 60 115/57 L 12/23/19 06:42 60 127/60 100 12/23/19 06:37 72 99 12/23/19 06:35 88 89 L 12/23/19 06:32 67 100 12/23/19 06:27 75 100 12/23/19 04:12 68 116/55 L 12/23/19 03:00 37.4 C 18 Coding Level of Care Code None Diagnoses Diet controlled gestational diabetes mellitus (GDM), antepartum O24.410 with 41 completed weeks gestation Z3A.41
[2019-12-23] MEDS ORDERED: IBUPROFEN 600 MG TAB PO ONE (15:44)
[2019-12-23] MEDS ORDERED: HYDROCORTISONE ACETATE 25 MG SUPP PR PRN ×2 (16:15→18:03)
[2019-12-23] MEDS ORDERED: IBUPROFEN 600 MG TAB PO PRN (16:15)
[2019-12-23] MEDS ORDERED: OXYCODONE/ACETAMINOPHEN 5mg/325mg TAB PO PRN ×2 (16:15→16:31)
--- NOTE | 2019-12-23 16:26 | Delivery Summary ---
Vaginal Delivery Summary Date of Service December 23, 2019 Vaginal Delivery Summary Pre-operative Diagnosis: at 41 weeks early labor Post-operative Diagnosis: same meconium stained fluid Procedure: pitocin augmentation epidural anesthesia arom iupc second degree laceration with repair EBL: 400cc Anesthesia: epidural Procedure: The patient presented to labor and delivery in early labor and very painful. she was admitted and given an epidural . she had changed from 1cm in the office to 3cm here. when I took over care, I ruptured her for meconium stained fluid. I attempted to place an IUPC x 2 where neither functioned. Continued pitocin with poor contraction tracing. Fetus category one. However, the patient began to get uncomfortable and was checked by nursing and was found to be complete. The patient pushed with good effect to deliver a viable male infant in cephalic position. The rest of the shoulder and the rest of the infant was then delivered without difficulty. The baby was vigorous. The nose and mouth were bulb suctioned and the infant was placed in the maternal abdomen for drying and attention. Cord was clamped and cut at about one minute of life. Cord blood and segment obtained. Placenta delivered spontaneous, intact with a three vessel cord. Cervix/sulci/rectum were intact. A second degree perineal laceration was repaired in the normal standard fashion. Hemostasis obtained with dilute pitocin and fundal massage. Apgars were 8/9. Mother and baby doing well at the end of the delivery. [facility] Vaginal Delivery Charge Vaginal Delivery Codes: 93395 global code for the antepartum, delivery, and post-
[2019-12-23] MEDS ORDERED: ACETAMINOPHEN 325 MG TAB PO PRN (16:31)
--- NOTE | 2019-12-23 17:40 | Anesthesia Procedure Note ---
Date of Service December 23, 2019 Anesthesia Post Epidural Note Vital Signs Vital Signs: Temp Pulse Resp BP Pulse Ox 37.3 C 76 16 113/65 98 12/23/19 07:03 12/23/19 17:31 12/23/19 08:00 12/23/19 17:31 12/23/19 16:05 Pain Intensity Abdomen: Pain Intensity: 9 Notes Mental Status: alert / awake / arousable Nausea / Vomiting: adequately controlled Pain: adequately controlled Airway Patency, RR, SpO2: stable & adequate BP & HR: stable & adequate Hydration State: stable & adequate Neuraxial Anesthesia: was administered and sensory block is resolving Anesthetic Complications: no major complications apparent and Pt Satisfied with anesthetic care Epidural: Removed without complications and With tip intact
[2019-12-23] MEDS ORDERED: SUPERCREAM 0.870% 15 GM JAR EXT PRN (18:03)
[2019-12-23] MEDS ORDERED: BENZOCAINE 20% AER SPR 82.5 GM CAN EXT PRN (18:03)
[2019-12-23] MEDS ORDERED: bisacodyL 10 MG SUPP PR PRN (18:03)
[2019-12-23] MEDS ORDERED: DIPHTHERIA/TETANUS/PERTUSSIS 0.5 ML SYR/VIAL IM ONE (18:10)
[2019-12-23] MEDS ORDERED: miSOPROStoL 200 MCG TAB ONE (20:17)
[2019-12-23] MEDS ORDERED: miSOPROStoL 200 MCG TAB PR ONE (20:25)
--- NOTE | 2019-12-23 20:35 | Obstetrical Progress Note ---
Date of Service December 23, 2019 Assessment & Plan (1) hemorrhage: Estimate loss at this point was around 1000cc. Will get all things measured for a more accurate measurement. uterotonics given. Now that bladder is empty and clot cleared from uterus, hopefully , uterus will firm. Will continue to watch closely. Starting hgb was 12.0. 640cc of clot removed, 290cc measured prior to my coming in for a total of 930cc. Subjective CTSP because of increased bleeding. Nursing was told at change of shift she had some small gushes. Nurse gave uterine massage and passed a small clot and had a gush of blood. Heavier bleeding has continued. THey drained the patient's bladder of 500cc of urine. Physical Exam Constitutional WD/WN, vitals as above Psychiatric A+Ox3, euthymic affect Uterine exploration performed with removal of a very large amount of clot, guessing 750cc. Aggressive uterine massage performed. 800mcg of cytotec given rectally. IV pitocin 30mu/500cc run in rapidly. Uterus rock hard at the end of this with a very little trickle of blood. STitches examined and found to be intact. Results & Data ([facility]) Vital Signs (Past 12 Hours) Vital Signs Temp Pulse Resp BP Pulse Ox 12/23/19 17:32 37.6 C H 76 113/65 12/23/19 17:31 37.6 C H 76 113/65 12/23/19 17:16 68 112/62 12/23/19 17:02 76 18 112/56 L 12/23/19 17:01 76 112/56 L 12/23/19 16:46 69 122/58 L 12/23/19 16:32 62 20 116/65 12/23/19 16:31 62 116/65 12/23/19 16:17 71 18 122/64 12/23/19 16:16 71 122/64 12/23/19 16:05 77 98 12/23/19 16:02 80 18 122/84 12/23/19 16:01 80 122/84 12/23/19 16:00 83 97 12/23/19 15:55 79 97 12/23/19 15:52 81 92 12/23/19 15:50 77 98 12/23/19 15:47 89 18 119/79 12/23/19 15:46 89 119/79 07/30/20 15:45 89 98 12/23/19 15:40 90 99 12/23/19 15:38 73 92 12/23/19 15:35 76 100 12/23/19 15:32 38.0 C H 75 18 120/81 100 12/23/19 15:30 72 100 12/23/19 15:25 72 100 12/23/19 15:22 79 84 L 12/23/19 15:20 70 98 12/23/19 15:16 79 121/91 12/23/19 15:14 94 H 98 12/23/19 15:11 108 H 94 12/23/19 15:08 92 H 98 12/23/19 15:05 115 H 92 12/23/19 15:03 97 H 99 12/23/19 15:02 94 H 130/86 12/23/19 14:58 84 100 12/23/19 14:57 79 85 L 12/23/19 14:53 75 96 12/23/19 14:51 91 H 91 12/23/19 14:48 83 98 12/23/19 14:47 66 120/53 L 12/23/19 14:45 62 90 12/23/19 14:43 67 92 12/23/19 14:40 65 88 L 12/23/19 14:38 61 83 L 12/23/19 14:35 61 84 L 12/23/19 14:33 61 100 12/23/19 14:32 61 123/57 L 12/23/19 14:28 70 88 L 12/23/19 14:23 63 86 L 12/23/19 14:22 64 100 12/23/19 14:17 67 124/59 L 88 L 12/23/19 14:12 82 99 12/23/19 14:07 66 100 12/23/19 14:02 66 100 12/23/19 14:01 68 127/60 12/23/19 13:57 65 100 12/23/19 13:52 68 100 12/23/19 13:47 79 139/82 100 12/23/19 13:42 65 100 12/23/19 13:37 65 100 12/23/19 13:32 63 122/59 L 100 12/23/19 13:27 67 100 12/23/19 13:22 66 100 12/23/19 13:17 67 120/66 100 12/23/19 13:12 69 100 12/23/19 13:07 69 100 12/23/19 13:02 68 119/59 L 100 12/23/19 12:57 67 100 12/23/19 12:52 75 100 12/23/19 12:47 60 100 12/23/19 12:46 64 142/88 H 12/23/19 12:42 59 L 100 12/23/19 12:37 62 99 12/23/19 12:32 60 100 12/23/19 12:31 59 L 138/80 12/23/19 12:27 59 L 100 12/23/19 12:22 64 100 12/23/19 12:17 56 L 133/81 100 12/23/19 12:12 56 L 97 12/23/19 12:07 73 99 12/23/19 12:02 69 120/59 L 99 12/23/19 11:57 69 97 12/23/19 11:52 70 98 12/23/19 11:47 69 100/57 L 97 12/23/19 11:42 67 98 12/23/19 11:37 63 100 12/23/19 11:32 66 105/59 L 100 12/23/19 11:27 67 100 12/23/19 11:22 67 100 12/23/19 11:17 63 108/56 L 100 12/23/19 11:12 67 100 12/23/19 11:07 66 100 12/23/19 11:02 66 100 12/23/19 11:01 61 109/56 L 12/23/19 10:57 73 100 12/23/19 10:52 64 100 12/23/19 10:47 67 100 12/23/19 10:46 69 116/66 12/23/19 10:42 70 100 12/23/19 10:37 64 98 12/23/19 10:32 71 116/58 L 99 12/23/19 10:27 69 100 12/23/19 10:22 66 97 12/23/19 10:18 68 110/59 L 12/23/19 10:17 64 99 12/23/19 10:12 62 99 12/23/19 10:07 63 100 12/23/19 10:02 60 104/57 L 100 12/23/19 09:57 61 100 12/23/19 09:52 66 100 12/23/19 09:47 62 100 12/23/19 09:46 60 116/76 12/23/19 09:42 63 100 12/23/19 09:37 76 100 12/23/19 09:32 64 100 12/23/19 09:31 65 122/84 12/23/19 09:27 61 100 12/23/19 09:22 57 L 100 12/23/19 09:17 55 L 100 12/23/19 09:16 56 L 128/72 12/23/19 09:12 55 L 100 12/23/19 09:07 53 L 99 12/23/19 09:02 58 L 99 12/23/19 09:01 55 L 129/66 12/23/19 08:57 58 L 100 12/23/19 08:52 57 L 100 12/23/19 08:47 57 L 100 12/23/19 08:42 61 97 12/23/19 08:37 61 98 12/23/19 08:32 67 99 12/23/19 08:31 68 110/81
[2019-12-23] MEDS ORDERED: MoRPHine SULFATE 2 MG/ML CARP IV STA (20:37)
[2019-12-23] MEDS: DOCUSATE SODIUM 100 MG CAP PO SCH (20:54)
[2019-12-23] MEDS: OXYTOCIN 20 UNITS in LACTATED RINGER'S 1,000 ML IV SCH (20:54)
[2019-12-23 20:55] LABS: Hematocrit (blood only) 27.4 % (37-47); Hemoglobin 9.4 g/dL (12.0-16.0)
--- NOTE | 2019-12-23 22:50 | Obstetrical Progress Note ---
Date of Service December 23, 2019 Assessment & Plan (1) hemorrhage: Seems to be controlled. Penn in overnight. Continue dilute pit overnight. Continue to monitor closely. hgb from 12 to 9.4. Recheck in the am. Subjective Feeling better. Has been unable to void. Nursing noting less bleeding but still an occasional trickling. Physical Exam Constitutional WD/WN, vitals as above Gastrointestinal (Abdomen) uterus is firm and 1-2 below u, it is deeper in the belly now, but I think this is because the uterus is firmer and the bladder is now drained. Psychiatric A+Ox3, euthymic affect Genitourinary penn placed and has drained about 1 liter Results & Data ([facility]) Vital Signs (Past 12 Hours) Vital Signs Temp Pulse Pulse Resp BP BP Pulse Ox 12/23/19 21:00 66 20 119/70 100 12/23/19 18:50 36.9 C 72 18 106/62 12/23/19 17:32 37.6 C H 76 113/65 12/23/19 17:31 37.6 C H 76 113/65 12/23/19 17:16 68 112/62 12/23/19 17:02 76 18 112/56 L 12/23/19 17:01 76 112/56 L 12/23/19 16:46 69 122/58 L 12/23/19 16:32 62 20 116/65 12/23/19 16:31 62 116/65 12/23/19 16:17 71 18 122/64 12/23/19 16:16 71 122/64 12/23/19 16:05 77 98 12/23/19 16:02 80 18 122/84 12/23/19 16:01 80 122/84 12/23/19 16:00 83 97 12/23/19 15:55 79 97 12/23/19 15:52 81 92 12/23/19 15:50 77 98 12/23/19 15:47 89 18 119/79 12/23/19 15:46 89 119/79 12/23/19 15:45 89 98 12/23/19 15:40 90 99 12/23/19 15:38 73 92 12/23/19 15:35 76 100 12/23/19 15:32 38.0 C H 75 18 120/81 100 12/23/19 15:30 72 100 12/23/19 15:25 72 100 12/23/19 15:22 79 84 L 12/23/19 15:20 70 98 12/23/19 15:16 79 121/91 12/23/19 15:14 94 H 98 12/23/19 15:11 108 H 94 12/23/19 15:08 92 H 98 12/23/19 15:05 115 H 92 12/23/19 15:03 97 H 99 12/23/19 15:02 94 H 130/86 12/23/19 14:58 84 100 12/23/19 14:57 79 85 L 12/23/19 14:53 75 96 12/23/19 14:51 91 H 91 12/23/19 14:48 83 98 12/23/19 14:47 66 120/53 L 12/23/19 14:45 62 90 12/23/19 14:43 67 92 12/23/19 14:40 65 88 L 12/23/19 14:38 61 83 L 12/23/19 14:35 61 84 L 12/23/19 14:33 61 100 12/23/19 14:32 61 123/57 L 12/23/19 14:28 70 88 L 12/23/19 14:23 63 86 L 12/23/19 14:22 64 100 12/23/19 14:17 67 124/59 L 88 L 12/23/19 14:12 82 99 12/23/19 14:07 66 100 12/23/19 14:02 66 100 12/23/19 14:01 68 127/60 12/23/19 13:57 65 100 12/23/19 13:52 68 100 12/23/19 13:47 79 139/82 100 12/23/19 13:42 65 100 12/23/19 13:37 65 100 12/23/19 13:32 63 122/59 L 100 12/23/19 13:27 67 100 12/23/19 13:22 66 100 12/23/19 13:17 67 120/66 100 12/23/19 13:12 69 100 12/23/19 13:07 69 100 12/23/19 13:02 68 119/59 L 100 12/23/19 12:57 67 100 12/23/19 12:52 75 100 12/23/19 12:47 60 100 12/23/19 12:46 64 142/88 H 12/23/19 12:42 59 L 100 12/23/19 12:37 62 99 12/23/19 12:32 60 100 12/23/19 12:31 59 L 138/80 12/23/19 12:27 59 L 100 12/23/19 12:22 64 100 12/23/19 12:17 56 L 133/81 100 12/23/19 12:12 56 L 97 12/23/19 12:07 73 99 12/23/19 12:02 69 120/59 L 99 12/23/19 11:57 69 97 12/23/19 11:52 70 98 12/23/19 11:47 69 100/57 L 97 12/23/19 11:42 67 98 12/23/19 11:37 63 100 12/23/19 11:32 66 105/59 L 100 12/23/19 11:27 67 100 12/23/19 11:22 67 100 12/23/19 11:17 63 108/56 L 100 12/23/19 11:12 67 100 12/23/19 11:07 66 100 12/23/19 11:02 66 100 12/23/19 11:01 61 109/56 L 12/23/19 10:57 73 100 12/23/19 10:52 64 100
[2019-12-24] MEDS: IBUPROFEN 600 MG TAB PO PRN ×4 (00:41→23:42)
[2019-12-24] MEDS: OXYTOCIN 20 UNITS in LACTATED RINGER'S 1,000 ML IV SCH (01:00)
[2019-12-24] MEDS ORDERED: OXYTOCIN 20 UNITS in LACTATED RINGER'S 1,000 ML IV SCH (01:15)
--- NOTE | 2019-12-24 05:50 | Obstetrical Progress Note ---
Date of Service <Ced Whelan MD - Last Filed: 12/24/19 06:36> December 24, 2019 Assessment & Plan <Ced Whelan MD - Last Filed: 12/24/19 06:36> (1) (spontaneous vaginal delivery): 29-year-old female who underwent IOL with subsequent yesterday evening, complicated by PPH with an EBL of ~930cc (EBL during L&D: ~400cc). Received dilute pitocin overnight and Penn placement. Hemodynamically stable this morning and feeling well overall. - Anticipate removal of Penn today and d/c of Pitocin - Pain well controlled with ibuprofen 600mg Q4H PRN. - Routine PPD care -- OOB, ambulation, resumption of normal diet as tolerated. Day #:: 1 Subjective <Ced Whelan MD - Last Filed: 12/24/19 06:36> Laura is a 29 y/o female who is now PPD #1 following IOL and subsequent in context of diet-controlled GDM and post-date to 41 weeks. Her period has been complicated by PPH with an estimated 930cc EBL follo wing L&D (labor EBL: ~400cc) -- has been well controlled overnight with dilute pitocin infusion and penn placement. Reports feeling well overall this morning and minimal bleeding. No shortness of breath or feelings of near-syncope. Some abdominal cramping that is well managed on analgesics. Voiding non-bloody, clear urine from Penn. Tolerating meals overnight; not yet ambulating. Not yet passing gas and no BMs yet. Breast feeding without difficulty. Review of Systems Denies fever, chills, sweats Denies shortness of breath, difficulty breathing, chest pain, palpitations, chest pressure. Denies breast pain. Denies dysuria. Denies headache. Physical Exam <Ced Whelan MD - Last Filed: 12/24/19 06:36> General: Alert, oriented. No acute distress. Cardiac: Regular rate and rhythm, no murmurs/rubs/gallops. Respiratory: Clear to auscultation bilaterally a/p, no wheezes/rales/rhonchi. No increased work of breathing. Symmetrical chest rise. No respiratory distress. Abdomen: Soft, nontender, nondistended. Bowel sounds present. Penn draining clear, non-bloody urine. Uterus: Uterine fundus firm, palpable 1 cm below umbilicus. Lower Extremities: No lower extremity edema or swelling. No deep calf pain. Tarsha's negative bilaterally. Results & Data <Ced Whelan MD - Last Filed: 12/24/19 06:36> Vital Signs (Past 12 Hours) Vital Signs Temp Pulse Resp BP Pulse Ox 12/24/19 04:30 36.5 C 78 18 94/60 L 12/23/19 23:25 36.8 C 69 18 124/75 12/23/19 21:00 66 20 119/70 100 12/23/19 18:50 36.9 C 72 18 106/62 <Apoorva Thomas MD, FACOG - Last Filed: 12/24/19 07:37> Co-Signing Physician Notes Resident Physician Supervision Note: I interviewed and examined the patient. Discussed with Dr. Whelan and agree with findings and plan as documented in the note. Any exceptions or clarifications are listed here: Doing well. h/h pending this am. WAs up to BR overnight to attempt BM and did very well. No issues with getting up and ambulationg. Bleeding minimal this am. PLan penn out and monitor. Documented By: Apoorva Thomas MD, FACOG Resident Activity Tracking <Ced Whelan MD - Last Filed: 12/24/19 06:36> Resident Involvement: Resident Care Provided Care Provided: Adult Hospital Medicine and OB Delivery
[2019-12-24 06:20] LABS: Hematocrit (blood only) 22.4 % (37-47); Hemoglobin 7.8 g/dL (12.0-16.0)
[2019-12-24] MEDS: PRENATAL VITAMIN 1 TAB PO SCH (08:14)
[2019-12-24] MEDS: DOCUSATE SODIUM 100 MG CAP PO SCH ×2 (08:14→20:48)
[2019-12-24] MEDS: ESCITALOPRAM OXALATE 10 MG TAB PO SCH (08:15)
[2019-12-24] MEDS ORDERED: bisacodyL 5 MG TABEC PO SCH (20:00)
--- NOTE | 2019-12-25 05:03 | Obstetrical Progress Note ---
Date of Service <Ced Whelan MD - Last Filed: 12/25/19 06:17> December 25, 2019 Assessment & Plan <Ced Whelan MD - Last Filed: 12/25/19 06:17> (1) (spontaneous vaginal delivery): 29-year-old female who underwent IOL with subsequent yesterday evening, complicated by PPH with an EBL of ~930cc (EBL during L&D: ~400cc) s/p pitocin - Continues to remain hemodynamically stable and without signs/symptoms of anemia or hypovolemia. Reports feeling well this AM. - Pain well controlled with ibuprofen 600mg Q4H PRN. - Routine PPD care -- OOB, ambulation, diet as tolerated - Anticipate d/c today pending peds Subjective <Ced Whelan MD - Last Filed: 12/25/19 06:17> Laura is a 29 y/o female who is now PPD #2 following IOL and subsequent in context of diet-controlled GDM and post-date to 41 weeks. Her period has been complicated by PPH with an estimated 930cc EBL following L&D (labor EBL: ~400cc) -- bleeding stopped yesterday AM after receving dilute pitocin throughout the previous night -- H&H yesterday returned 7.8 and 22.4. Did well throughout the day yesterday without symptoms of pre- syncope or dyspnea. Reports feeling well overall this morning and minimal bleeding. No symptoms of presyncope or dyspnea overnight. No shortness of breath or feelings of near- syncope. Some abdominal cramping that is well managed on analgesics. Voiding without difficulty. Tolerating meals overnight. Ambulating well. Passing gas without difficulty. Breast feeding without difficulty. Review of Systems Denies fever, chills, sweats Denies shortness of breath, difficulty breathing, chest pain, palpitations, chest pressure. Denies breast pain. Denies dysuria. Denies headache. Physical Exam <Ced Whelan MD - Last Filed: 12/25/19 06:17> General: Alert, oriented. No acute distress. Cardiac: Regular rate and rhythm, no murmurs/rubs/gallops. Respiratory: Clear to auscultation bilaterally a/p, no wheezes/rales/rhonchi. No increased work of breathing. Symmetrical chest rise. No respiratory distress. Abdomen: Soft, nontender, nondistended. Bowel sounds present. Uterus: Uterine fundus firm, palpable 1 cm below umbilicus. Lower Extremities: No lower extremity edema or swelling. No deep calf pain. Tarsha's negative bilaterally. Results & Data <Ced Whelan MD - Last Filed: 12/25/19 06:17> Vital Signs (Past 12 Hours) Vital Signs Temp Pulse Resp BP Pulse Ox 12/24/19 23:35 36.6 C 67 20 115/68 99 <Rachna Cormier MD - Last Filed: 12/25/19 07:51> Co-Signing Physician Notes I have reviewed the resident's note and examined the patient myself, and agree with the note above. Resident Activity Tracking <Ced Whelan MD - Last Filed: 12/25/19 06:17> Resident Involvement: Resident Care Provided Care Provided: Adult Hospital Medicine and OB Delivery
[2019-12-25 06:48] LABS: Hematocrit (blood only) 22.6 % (37-47); Hemoglobin 7.6 g/dL (12.0-16.0)
[2019-12-25] MEDS: PRENATAL VITAMIN 1 TAB PO SCH (07:27)
[2019-12-25] MEDS: DOCUSATE SODIUM 100 MG CAP PO SCH (07:27)
[2019-12-25] MEDS: ESCITALOPRAM OXALATE 10 MG TAB PO SCH (07:29)
== END 2019-12-25 13:30 | disposition home or self-care (01) | DRG 806 ==
LOC: OPB 23:04 → 4S1 23:06 → 4S2 12-23 18:01

== ENCOUNTER 2022-10-22 07:35 | Inpatient (IN) ==
[2022-10-22] MEDS ORDERED: SODIUM CHLORIDE 0.9% 250 ML IV PRN (09:27)
[2022-10-22] MEDS ORDERED: LIDOCAINE 1% LOCAL 20 ML VIAL INFIL PRN (10:37)
[2022-10-22] MEDS ORDERED: OXYTOCIN 30 UNITS/500 ML BAG IV PRN (10:37)
[2022-10-22] MEDS ORDERED: miSOPROStoL 50 MCG TAB PO STA ×2 (10:54→16:14)
--- NOTE | 2022-10-22 11:04 | History & Physical Report ---
Date of Service October 22, 2022 Assessment & Plan Admission and Anticipated Discharge Date Admission Date: October 22, 2022 History of Present Illness Chief Complaint: induction of labor for post-dates Primary Care Provider: Manasa Champion PA-C 32 F P1001 at 40.5 weeks admitted for post dates induction of labor. GBS is negative. Covid is negative. Allergies Allergy/AdvReac Type Severity Reaction Status Date / Time Sulfa (Sulfonamide Allergy Intermediate RASH/NAUSEA Verified 12/25/20 08:32 Antibiotics) "BACTRIM RASH" sulfamethoxazole Allergy Intermediate Low grade Verified 12/25/20 08:32 fever, hives, shakiness, nausea trimethoprim Allergy Intermediate Low grade Verified 12/25/20 08:32 fever, hives, shakiness, nausea Bactrim Allergy Unknown Low grade Verified 11/06/18 15:14 fever, hives, shakiness, nausea doxycycline AdvReac nausea / Verified 12/25/20 08:48 vomiting prednisone AdvReac hallucinations Verified 12/25/20 08:49 / racing heart / N / V Home Medications Medication Instructions Recorded Confirmed Type prenat.vits,danitza,[id number] 1 tab PO DAILY 05/05/19 10/22/22 History Patient History Medical History Abnormal biochemical finding on screening of mother Anxiety Encounter for anatomic survey Evaluate anatomy not seen on prior sonogram GERD (gastroesophageal reflux disease) Gestational diabetes Hx of varicella hemorrhage Surgical History History of rhinoplasty History of tooth extraction [place] teeth removed Family History Father Diabetes Multiple sclerosis Dyslipidemia Hypertension Mother Colorectal cancer, Onset Age: 52 DX age 52. at age 53- metastatic Dyslipidemia Family/Other Breast cancer Social History Smoking Status: Never smoker Tobacco Type: Cigarettes Second Hand Exposure: No; Do You Dip or Chew Tobacco: No; Hx Alcohol Use: No Hx Substance Use: Yes Last Used Substance Other:: 6 MONTHS AGO Substance Use Type Other:: prior to finding out she was Preferred Language: [place] Communication Ability: Effective Cryptographic Technician Required: No Beliefs That Will Affect Care: None marital status: marital status details: Felix Almendarez (30) [phone] Current Living Situation: Family Current Living Situation Comment: Lives with , son, and one dog. 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 HAND History neg Review of Systems All systems reviewed & are unremarkable except as noted in HPI & below Physical Exam Constitutional: WD/WN, vitals as above Eyes: PERRL, conjunctivae normal, anicteric sclerae Respiratory: normal respiratory effort, lungs clear to auscultation Cardiovascular: RRR, no murmur, no edema Gastrointestinal (Abdomen): Inspection/Auscultation: abdomen normal to inspection Musculoskeletal: Extremities: extremities normal to inspection Skin: no rashes, warm and dry Neurologic: patellar DTR's 2+ bilat, sensation intact Psychiatric: A+Ox3, euthymic affect Genitourinary: OB Exam Abdomen: + fundal height and + vertex Manual OB Exam: + cervical dilation 1 cm, + cervical effacement 50% and + station (posterior and firm) high OB Exam Monitor Tracing: + external FHT monitor used, + external uterine monitor used, + category I and + normal FHT variability Results & Data Vital Signs (Past 12 Hours) Vital Signs Temp Pulse Resp BP 10/22/22 08:46 37.1 C 72 18 143/78 H 10/22/22 08:20 72 143/78 H Code Status & VTE Plan VTE Prophylaxis Plan VTE Prophylaxis will be ordered: No Monitoring External Monitor Cat 1
[2022-10-22 11:08] LABS: Hematocrit (blood only) 33.1 % (37.0-47.0); Hemoglobin 11.6 g/dl (12.0-16.0); Mean Corpuscular Hemoglobin 31.9 pg (25.0-34.0); Mean Corpuscular Volume 90.9 fL (80.0-100.0); Mean Platelet Volume 12.7 fL (9.4-12.4); Platelet Count 100 K/uL (130-400); RDW Coefficient of Variation 12.4 % (11.5-14.5); Red Blood Count 3.64 M/uL (4.20-5.40); White Blood Count 9.17 K/ul (4.8-10.8)
--- NOTE | 2022-10-22 16:16 | Labor Progress Brief Note ---
Date of Service October 22, 2022 Assessment & Plan Admission and Anticipated Discharge Date Admission Date: October 22, 2022 Physical Exam Genitourinary: Manual OB Exam: + cervical dilation 1 cm, + cervical effacement 50% and + station high OB Exam Monitor Tracing: + external FHT monitor used, + external uterine monitor used, + category I and + normal FHT variability cervix softening and more anterior Results & Data Vital Signs (Past 12 Hours) Vital Signs Temp Pulse Resp BP O2 Del Method 10/22/22 15:28 36.6 C 62 141/61 H 10/22/22 15:28 Room Air 10/22/22 08:46 37.1 C 72 18 143/78 H 10/22/22 15:30 18 10/22/22 15:30 36.6 C 18 10/22/22 15:25 62 10/22/22 15:25 141/61 H 10/22/22 12:30 18 10/22/22 12:30 36.6 C 18 10/22/22 13:54 66 10/22/22 13:54 117/55 L 10/22/22 08:20 72 143/78 H
[2022-10-22] MEDS ORDERED: DINOPROSTONE 10 MG INSERT PV ONE (22:17)
--- NOTE | 2022-10-22 22:58 | Labor Progress Brief Note ---
Date of Service October 22, 2022 Assessment & Plan Admission and Anticipated Discharge Date Admission Date: October 22, 2022 Physical Exam Genitourinary: Manual OB Exam: + cervical dilation 1 cm, + cervical effacement 50% and + station high OB Exam Monitor Tracing: + external FHT monitor used, + external uterine monitor used, + category I and + normal FHT variability Cervidil 10 mg placed vaginally Results & Data Vital Signs (Past 12 Hours) Vital Signs Temp Pulse Resp BP O2 Del Method 10/22/22 15:28 36.6 C 62 141/61 H 10/22/22 15:28 Room Air 10/22/22 22:52 18 10/22/22 22:52 37.1 C 18 10/22/22 22:52 61 10/22/22 22:52 132/60 10/22/22 19:35 18 10/22/22 19:35 37.1 C 18 10/22/22 19:36 65 10/22/22 19:36 131/79 10/22/22 18:17 76 10/22/22 18:17 121/79 10/22/22 16:25 63 10/22/22 16:25 116/73 10/22/22 15:30 18 10/22/22 15:30 36.6 C 18 10/22/22 15:25 62 10/22/22 15:25 141/61 H 10/22/22 12:30 18 10/22/22 12:30 36.6 C 18 10/22/22 13:54 66 10/22/22 13:54 117/55 L
[2022-10-22] MEDS ORDERED: BUTORPHANOL TARTRATE 1 MG/ML VIAL IV PRN (23:12)
--- NOTE | 2022-10-23 08:28 | Labor Progress Brief Note ---
Date of Service October 23, 2022 Assessment & Plan Admission and Anticipated Discharge Date Admission Date: October 22, 2022 Physical Exam Genitourinary: Manual OB Exam: + cervical dilation 2 cm and 3 cm, + cervical effacement 70% and + station high OB Exam Monitor Tracing: + external FHT monitor used, + external uterine monitor used, + category I and + normal FHT variability Cervidil pulled put and will start Oxytocin Results & Data Vital Signs (Past 12 Hours) Vital Signs Temp Pulse Resp BP 10/23/22 08:07 68 124/68 10/23/22 03:39 37.0 C 56 L 16 118/72 10/22/22 22:52 18 10/22/22 22:52 37.1 C 18 10/22/22 22:52 61 10/22/22 22:52 132/60
[2022-10-23] MEDS ORDERED: OXYTOCIN 30 UNITS/500 ML BAG IV PRN ×2 (08:29→22:01)
[2022-10-23 09:48] LABS: Hematocrit (blood only) 35.5 % (37.0-47.0); Hemoglobin 12.1 g/dl (12.0-16.0); Mean Corpuscular Hemoglobin 31.4 pg (25.0-34.0); Mean Corpuscular Hgb Conc 34.1 g/dL (32.0-36.0); Mean Corpuscular Volume 92.2 fL (80.0-100.0); Mean Platelet Volume 12.4 fL (9.4-12.4); Platelet Count 103 K/uL (130-400); RDW Coefficient of Variation 12.6 % (11.5-14.5); RDW Standard Deviation 41.9 fL (36.4-46.3); Red Blood Count 3.85 M/uL (4.20-5.40); White Blood Count 8.98 K/ul (4.8-10.8)
[2022-10-23] MEDS: LACTATED RINGER'S 1,000 ML IV PRN ×2 (10:02→16:25)
[2022-10-23] MEDS ORDERED: fentaNYL citrate PF 100 MCG/2 ML VIAL ONE (15:23)
[2022-10-23] MEDS ORDERED: ePHEDrine sulfate 50 MG/ML AMP ONE (15:23)
[2022-10-23] MEDS ORDERED: SODIUM CHLORIDE 0.9% PF INJ 10 ML VIAL ONE (15:24)
[2022-10-23] MEDS ORDERED: LIDOCAINE 2%/EPINEPHRINE 1:200,000 20 ML PF ONE (15:24)
[2022-10-23] MEDS ORDERED: fentaNYL 2MCG/ML ROPIVACAINE 1.25MG/ML 100 ML BAG EPI ONE (15:24)
[2022-10-23] MEDS ORDERED: BUPIVACAINE 0.25% PF 30 ML VIAL ONE (15:24)
[2022-10-23] MEDS ORDERED: NALOXONE HCL 0.4 MG/1 ML VIAL/CARP IV PRN (15:53)
[2022-10-23] MEDS ORDERED: fentaNYL citrate PF 100 MCG/2 ML VIAL EPI PRN (15:53)
[2022-10-23] MEDS ORDERED: BUPIVACAINE 0.25% PF 30 ML VIAL EPI STA (15:53)
[2022-10-23] MEDS ORDERED: fentaNYL citrate PF 100 MCG/2 ML VIAL EPI STA (15:53)
[2022-10-23] MEDS ORDERED: NALBUPHINE HCL INJ 10 MG/ML AMP IV PRN (15:53)
[2022-10-23] MEDS ORDERED: NALOXONE HCL 1 MG in SODIUM CHLORIDE 0.9% 1000ML 1,000 ML IV PRN (15:53)
[2022-10-23] MEDS ORDERED: SODIUM CHLORIDE 0.9% PF INJ 10 ML VIAL EPI STA (15:53)
[2022-10-23] MEDS ORDERED: BUPIVACAINE 0.25% PF 30 ML VIAL EPI PRN (15:53)
[2022-10-23] MEDS ORDERED: ePHEDrine sulfate 50 MG/ML AMP IV PRN (15:53)
[2022-10-23] MEDS ORDERED: fentaNYL 2MCG/ML ROPIVACAINE 1.25MG/ML 100 ML BAG EPI PRN (15:53)
[2022-10-23] MEDS ORDERED: diphenhydrAMINE 50 MG/ML VIAL IV PRN (15:53)
[2022-10-23] MEDS ORDERED: LIDOCAINE 2%/EPINEPHRINE 1:200,000 20 ML PF EPI STA (15:53)
[2022-10-23] MEDS ORDERED: ROPIVACAINE 0.5% PF 5 MG/ML 20 ML VIAL EPI PRN (15:53)
[2022-10-23] MEDS ORDERED: LIDOCAINE 2% MPF LOCAL 5 ML VIAL EPI PRN (15:53)
[2022-10-23] MEDS ORDERED: SODIUM CHLORIDE 0.9% PF INJ 10 ML VIAL EPI PRN (15:53)
--- NOTE | 2022-10-23 15:55 | Anesthesiology Consultation ---
Date of Service October 23, 2022 Assessment & Plan (1) Encounter for pre-operative examination: Chart Review Chart Review: Patient NOT seen in Pre Admission Testing and Acceptable Risk for Labor Epidural Consults Requested none History Height/Weight Height: 5 ft 5 in Weight: 97.069 kg Allergies Allergy/AdvReac Type Severity Reaction Status Date / Time Sulfa (Sulfonamide Allergy Intermediate RASH/NAUSEA Verified 12/25/20 08:32 Antibiotics) "BACTRIM RASH" sulfamethoxazole Allergy Intermediate Low grade Verified 12/25/20 08:32 fever, hives, shakiness, nausea trimethoprim Allergy Intermediate Low grade Verified 12/25/20 08:32 fever, hives, shakiness, nausea Bactrim Allergy Unknown Low grade Verified 11/06/18 15:14 fever, hives, shakiness, nausea doxycycline AdvReac nausea / Verified 12/25/20 08:48 vomiting prednisone AdvReac hallucinations Verified 12/25/20 08:49 / racing heart / N / V Medications Home Medications Medication Instructions Recorded Confirmed Last Taken prenat.vits,danitza,kpe-wuas-dhmfc 1 tab PO DAILY 05/05/19 10/22/22 10/21/22 Active Medications Generic Name Dose Route Start Last Admin Trade Name Freq PRN Reason Stop Dose Admin Lactated Ringer's 1,000 mls @ 125 mls/hr 10/22/22 10:37 10/23/22 10:02 Lr IV 10/24/22 10:36 125 mls/hr .Q8H PRN Administration L&D Protocol Protocol Oxytocin 30 units in 500 mls @ 9 mls/hr 10/23/22 08:29 10/23/22 13:40 Pitocin IV 10/25/22 08:28 0.54 units/hr .Q24H PRN 9 mls/hr Labor Induction/Augmentation Titration Protocol 0.54 UNITS/HR Past Medical History Medical History Abnormal biochemical finding on screening of mother Anxiety Encounter for anatomic survey Evaluate anatomy not seen on prior sonogram GERD (gastroesophageal reflux disease) Gestational diabetes Hx of varicella hemorrhage Exercise / Class Metabolic Activity II 4-5 Yardwork/Stairs/Walk up hill Past Family History Family History Father Diabetes Multiple sclerosis Dyslipidemia Hypertension Mother Colorectal cancer, Onset Age: 52 DX age 52. at age 53- metastatic Dyslipidemia Family/Other Breast cancer Past Surgical History Surgical History History of rhinoplasty History of tooth extraction [place] teeth removed Social History Smoking Status: Never smoker tobacco type: cigarettes Do You Dip or Chew Tobacco: No Hx Alcohol Use: No Alcohol type: beer and wine alcohol intake frequency: a few times a month Hx Substance Use: Yes substance use type: marijuana Substance Use Type Other:: prior to finding out she was Last Used Substance Other:: 6 MONTHS AGO Physical Exam Vital Signs Last Vital Signs Temp 37.1 C 10/23/22 10:06 Pulse 58 L 10/23/22 15:09 Resp 18 10/23/22 10:06 BP 133/66 10/23/22 15:09 O2 Del Method Room Air 10/22/22 15:28 Testing Laboratory Results 10/23/22 09:16 Blood Type O Positive 10/22/22 09:33 Antibody Screen NEGATIVE 10/22/22 09:33
--- NOTE | 2022-10-23 16:31 | Labor Progress Brief Note ---
Date of Service October 23, 2022 Assessment & Plan Admission and Anticipated Discharge Date Admission Date: October 22, 2022 Physical Exam Genitourinary: Manual OB Exam: + cervical dilation 4 cm, + cervical effacement 70% and + station -2 OB Exam Monitor Tracing: + external FHT monitor used, + external uterine monitor used, + category I and + normal FHT variability AROM with Amni-hook clear fluid Results & Data Vital Signs (Past 12 Hours) Vital Signs Temp Pulse Resp BP Pulse Ox 10/23/22 16:30 68 126/62 10/23/22 16:27 67 100 10/23/22 16:28 67 138/74 10/23/22 16:25 66 149/83 H 10/23/22 16:24 67 131/75 10/23/22 16:22 63 140/71 100 10/23/22 16:20 61 134/72 10/23/22 16:18 57 L 141/68 H 10/23/22 16:17 60 99 10/23/22 16:12 59 L 100 10/23/22 16:09 67 126/90 10/23/22 16:07 59 L 100 10/23/22 16:02 65 100 10/23/22 15:09 58 L 133/66 10/23/22 14:06 72 131/76 10/23/22 13:07 53 L 125/76 10/23/22 12:12 57 L 116/72 10/23/22 11:06 63 133/79 10/23/22 10:06 37.1 C 57 L 18 120/68 10/23/22 08:07 68 124/68
--- NOTE | 2022-10-23 21:03 | Labor Progress Brief Note ---
Date of Service October 23, 2022 Assessment & Plan Admission and Anticipated Discharge Date Admission Date: October 22, 2022 Physical Exam Genitourinary: Manual OB Exam: + cervical dilation 10 cm, + cervical effacement 100% and + station + 1 OB Exam Monitor Tracing: + external FHT monitor used, + external uterine monitor used, + category I and + normal FHT variability Results & Data Vital Signs (Past 12 Hours) Vital Signs Temp Pulse Resp BP Pulse Ox 10/23/22 19:38 36.4 C L 18 10/23/22 20:57 63 100 10/23/22 20:52 63 100 10/23/22 20:47 63 99 10/23/22 20:48 62 137/73 10/23/22 20:42 59 L 99 10/23/22 20:37 60 100 10/23/22 20:33 60 125/65 10/23/22 20:32 66 100 10/23/22 20:27 56 L 100 10/23/22 20:22 56 L 100 10/23/22 20:19 62 116/55 L 10/23/22 20:17 61 100 10/23/22 20:12 64 100 10/23/22 20:07 67 100 10/23/22 20:03 61 103/58 L 10/23/22 20:02 59 L 100 10/23/22 19:57 63 100 10/23/22 19:52 63 99 10/23/22 19:50 65 118/56 L 10/23/22 19:47 63 100 10/23/22 19:42 63 100 10/23/22 19:37 61 100 10/23/22 19:33 59 L 111/55 L 10/23/22 19:32 58 L 99 10/23/22 19:27 58 L 100 10/23/22 19:22 56 L 99 10/23/22 19:17 61 100 10/23/22 19:18 63 115/57 L 10/23/22 19:12 60 100 10/23/22 19:07 59 L 100 10/23/22 19:02 50 L 100 10/23/22 18:57 58 L 100 10/23/22 18:52 59 L 100 10/23/22 18:47 56 L 100 10/23/22 18:48 66 131/91 10/23/22 18:42 50 L 100 10/23/22 18:37 55 L 100 10/23/22 18:34 55 L 129/83 10/23/22 18:32 54 L 100 10/23/22 18:27 51 L 100 10/23/22 18:25 61 93 10/23/22 18:22 55 L 100 10/23/22 18:18 60 128/85 10/23/22 18:17 54 L 100 10/23/22 18:12 58 L 99 10/23/22 18:07 51 L 100 10/23/22 18:02 50 L 99 10/23/22 18:03 48 L 128/76 10/23/22 17:57 48 L 100 10/23/22 17:52 48 L 100 10/23/22 17:47 55 L 136/79 100 10/23/22 17:42 55 L 100 10/23/22 17:41 56 L 140/80 10/23/22 17:37 72 100 10/23/22 17:32 70 100 10/23/22 17:33 59 L 118/64 10/23/22 17:28 62 106/64 10/23/22 17:27 59 L 100 10/23/22 17:22 73 100 10/23/22 17:20 71 120/57 L 10/23/22 17:17 74 100 10/23/22 17:12 65 100 10/23/22 17:11 61 122/59 L 10/23/22 17:07 63 118/59 L 100 10/23/22 17:02 100 10/23/22 17:02 69 10/23/22 17:02 60 120/67 10/23/22 16:57 60 118/59 L 100 10/23/22 16:52 71 100 10/23/22 16:53 69 123/60 10/23/22 16:47 64 128/60 100 10/23/22 16:48 62 126/60 10/23/22 16:44 62 106/56 L 10/23/22 16:42 62 122/57 L 100 10/23/22 16:40 59 L 113/67 10/23/22 16:37 64 100 10/23/22 16:38 63 122/63 10/23/22 16:36 60 114/61 10/23/22 16:34 60 123/62 10/23/22 16:32 100 10/23/22 16:32 56 L 10/23/22 16:32 62 125/67 10/23/22 16:30 68 126/62 10/23/22 16:27 67 100 10/23/22 16:28 67 138/74 10/23/22 16:25 66 149/83 H 10/23/22 16:24 67 131/75 10/23/22 16:22 63 140/71 100 10/23/22 16:20 61 134/72 10/23/22 16:18 57 L 141/68 H 10/23/22 16:17 60 99 10/23/22 16:12 59 L 100 10/23/22 16:09 67 126/90 10/23/22 16:07 59 L 100 10/23/22 16:02 65 100 10/23/22 15:09 37.0 C 58 L 18 133/66 100 10/23/22 14:06 72 131/76 10/23/22 13:07 53 L 125/76 10/23/22 12:12 57 L 116/72 10/23/22 11:06 36.7 C 63 18 133/79 10/23/22 10:06 37.1 C 57 L 18 120/68
--- NOTE | 2022-10-23 21:31 | Delivery Summary ---
Vaginal Delivery Summary Date of Service October 23, 2022 Vaginal Delivery Summary Delivery Note live female SIGIFREDO over intact perineum with nuchal cord x1 reduced at delivery of head with delayed cord clamping and Apgars 7/8 weight pending. Cord blood obtained followed by spontaneous delivery of intact placenta with 3VC. No tears. EBL 200 ml. Final sponge and instrument count are correct. Mom and baby stable.
[2022-10-23] MEDS ORDERED: ACETAMINOPHEN 325 MG TAB PO PRN (22:01)
[2022-10-23] MEDS ORDERED: BENZOCAINE 20% AER SPR 82.5 GM CAN EXT PRN (22:01)
[2022-10-23] MEDS ORDERED: bisacodyL 10 MG SUPP PR PRN (22:01)
[2022-10-23] MEDS ORDERED: DIPHTHERIA/TETANUS/PERTUSSIS Vaccine (Tdap, Age 7+yrs) 0.5mL SYR/VL IM ONE (22:01)
[2022-10-23] MEDS ORDERED: HYDROCORTISONE ACETATE 25 MG SUPP PR PRN (22:01)
[2022-10-24] MEDS ORDERED: FAMOTIDINE 10 MG TABLET PO ONE (00:30)
[2022-10-24] MEDS: IBUPROFEN 600 MG TAB PO PRN ×4 (00:38→21:11)
[2022-10-24 06:55] LABS: Hematocrit (blood only) 31.8 % (37.0-47.0); Mean Corpuscular Hemoglobin 31.7 pg (25.0-34.0); Mean Corpuscular Hgb Conc 34.6 g/dL (32.0-36.0); Mean Corpuscular Volume 91.6 fL (80.0-100.0); Mean Platelet Volume 13.4 fL (9.4-12.4); Platelet Count 91 K/uL (130-400); Platelet Estimate Decreased (Normal); RDW Coefficient of Variation 12.4 % (11.5-14.5); RDW Standard Deviation 41.1 fL (36.4-46.3); Red Blood Count 3.47 M/uL (4.20-5.40); White Blood Count 10.17 K/ul (4.8-10.8)
[2022-10-24] MEDS ORDERED: FERROUS SULFATE 325 MG TAB PO SCH (08:00)
[2022-10-24] MEDS ORDERED: PRENATAL VITAMIN 1 TAB PO SCH (08:00)
--- NOTE | 2022-10-24 08:37 | Anesthesia Procedure Note ---
Date of Service October 24, 2022 Anesthesia Post Epidural Note Vital Signs Vital Signs: Temp Pulse Resp BP Pulse Ox O2 Del Method 36.8 C 64 20 132/78 98 Room Air 10/23/22 23:55 10/23/22 23:55 10/23/22 23:55 10/24/22 04:33 10/23/22 23:55 10/23/22 23:55 Pain Intensity Lower Abdomen: Pain Intensity: 0 Bilateral Back: Pain Intensity: 4 Notes Mental Status: alert / awake / arousable and participated in evaluation Nausea / Vomiting: adequately controlled Pain: adequately controlled Airway Patency, RR, SpO2: stable & adequate BP & HR: stable & adequate Hydration State: stable & adequate Neuraxial Anesthesia: was administered and sensory block is resolving Anesthetic Complications: no major complications apparent Epidural: Removed without complications and With tip intact
--- NOTE | 2022-10-24 08:59 | Obstetrical Progress Note ---
Date of Service October 24, 2022 Assessment & Plan (1) Normal course: Present on Admission?: No Plan continue routine course Regular diet Ambulation discharge plan either tonight or tomorrow Day #:: 1 Subjective Ambulation: ambulating normally Voiding: no voiding problems Passing Gas:: Yes Diet Tolerance:: regular diet Feeding Type:: breast feeding Review of Systems All systems reviewed & are unremarkable except as noted in HPI & below Constitutional: + as per Subjective / HPI Physical Exam Constitutional well developed and well nourished Eyes PERRL, conjunctivae normal, anicteric sclerae Respiratory normal respiratory effort, lungs clear to auscultation Cardiovascular RRR, no murmur, no edema Gastrointestinal (Abdomen) normal bowel sounds, soft, nontender, no hepatosplenomegaly Genitourinary deferred, normal lochia Results & Data Vital Signs (Past 12 Hours) Vital Signs Temp Pulse Pulse Resp BP BP Pulse Ox 10/24/22 04:33 132/78 10/23/22 23:55 36.8 C 64 20 123/69 98 10/23/22 23:20 36.9 C 20 10/23/22 22:50 20 10/23/22 22:20 20 10/23/22 22:05 18 10/23/22 21:50 18 10/23/22 21:35 18 10/23/22 21:20 20 10/23/22 23:20 71 132/83 10/23/22 23:05 68 118/72 10/23/22 22:52 95 10/23/22 22:52 89 10/23/22 22:52 75 90 10/23/22 22:51 68 127/67 10/23/22 22:47 64 99 10/23/22 22:42 62 99 10/23/22 22:37 63 100 10/23/22 22:35 60 157/80 H 10/23/22 22:32 68 100 10/23/22 22:27 72 98 10/23/22 22:22 64 99 10/23/22 22:20 57 L 129/75 10/23/22 22:17 58 L 99 10/23/22 22:12 61 99 10/23/22 22:07 60 98 10/23/22 22:05 60 125/63 10/23/22 22:02 61 99 10/23/22 21:57 59 L 99 10/23/22 21:03 22 10/23/22 21:03 36.9 C 22 10/23/22 21:52 60 99 10/23/22 21:50 64 131/67 10/23/22 21:47 64 99 10/23/22 21:42 68 100 10/23/22 21:37 62 100 10/23/22 21:35 65 135/69 10/23/22 21:32 67 100 10/23/22 21:27 78 94 10/23/22 21:22 64 100 10/23/22 21:20 61 123/59 L 10/23/22 21:17 64 100 10/23/22 21:18 64 113/58 L 10/23/22 21:12 64 100 10/23/22 21:09 84 85 L 10/23/22 21:07 63 99 10/23/22 21:04 73 139/67 10/23/22 21:02 67 98 O2 Del Method 10/24/22 04:33 10/23/22 23:55 Room Air 10/23/22 23:20 10/23/22 22:50 10/23/22 22:20 10/23/22 22:05 10/23/22 21:50 10/23/22 21:35 10/23/22 21:20 10/23/22 23:20 10/23/22 23:05 10/23/22 22:52 10/23/22 22:52 10/23/22 22:52 10/23/22 22:51 10/23/22 22:47 10/23/22 22:42 10/23/22 22:37 10/23/22 22:35 10/23/22 22:32 10/23/22 22:27 10/23/22 22:22 10/23/22 22:20 10/23/22 22:17 10/23/22 22:12 10/23/22 22:07 10/23/22 22:05 10/23/22 22:02 10/23/22 21:57 10/23/22 21:03 10/23/22 21:03 10/23/22 21:52 10/23/22 21:50 10/23/22 21:47 10/23/22 21:42 10/23/22 21:37 10/23/22 21:35 10/23/22 21:32 10/23/22 21:27 10/23/22 21:22 10/23/22 21:20 10/23/22 21:17 10/23/22 21:18 10/23/22 21:12 10/23/22 21:09 10/23/22 21:07 10/23/22 21:04 10/23/22 21:02 Supervising Physician Co-Signing Physician Notes sary KHAN
[2022-10-24] MEDS ORDERED: NON-FORMULARY MEDICATION (Prenat.Vits,Cal,Min-Iron-Folic tablet) PO SCH (09:00)
[2022-10-24] MEDS: DOCUSATE SODIUM 100 MG CAP PO SCH ×2 (09:05→21:11)
[2022-10-24] MEDS ORDERED: bisacodyL 5 MG TABEC PO SCH (20:00)
== END 2022-10-24 22:05 | disposition home or self-care (01) | DRG 807 ==
LOC: 4S1 07:35 → 4E2 10-24 00:09